=== PATIENT | male | born 1950 | race Caucasian/White ===

== ENCOUNTER → 2016-07-08 | Day surgery (SDC) | payer BC ==
[2016-07-01 10:06] VITALS: BMI 25.0
[~2016-07-08] VITALS: Ht 175.3 cm; Wt 78.2 kg
[~2016-07-08] MED LIST: ALBU18002 INH; ASCO500T87 PO; ASPI81TA28 PO; CHOL1000 PO; COCO1CAP PO; GLUCTAB32 PO; LECI1200 PO; LIDOCAINE HCL 2% 2 ML VIAL (20MG/ML) ONE; MIDAZOLAM HCL 1 MG/ML 2ML VIAL ONE; ONDANSETRON INJ 2 MG/ML 2 ML VIAL ONE; PROPOFOL IV EMULSION 10 MG/ML 20 ML VIAL IV ONE; SODIUM CHLORIDE 0.9% 500ML 500 ML IV ONE; TADA10TA PO; TURM1CAP4 PO; VITA400C3 PO; [UNRECOGNIZED DRUG - OTHER] PO
[2016-07-08 07:50] VITALS: Ht 175.3 cm; Wt 78.2 kg
--- NOTE | 2016-07-08 08:40 | Endo History and Physical ---
History & Physical Date of Service: July 08, 2016. Chief Complaint: SCREENING ABDOMINAL PAIN Referring Physician: KEV THAKKAR History of Present Illness 65 yo CM who presents for screening colonoscopy. Past Surgical History Hx Cardiac Surgery: No Hx Internal Defibrillator: No Hx Pacemaker: No Hx Abdominal Surgery: Yes (PURNIMA, RT INGUINAL HERNIA X 3, LEFT INGUINAL HERNIA REPAIR) Hx of Implantable Prosthesis: No Hx Post-Op Nausea and Vomiting: No Hx Cancer Surgery: Yes (RADICAL PROSTATECTOMY, FACIAL EXCISION) Hx Thoracic Surgery: No Hx Orthopedic: Yes (LEFT KNEE ARTHROSCOPY) Hx Urinary Tract Surgery: No Family History Polyp, IBD Social History Smoking Status: Former Smoker Hx Substance Use: No Hx Alcohol Use: Yes (2-3 BEERS DAILY) Allergies Coded Allergies: Apple (Verified Allergy, Severe, THROAT SWELLS, 07/08/16) Art (Verified Allergy, Severe, THROAT SWELLS, 07/08/16) NO KNOWN DRUG ALLERGIES (Verified Allergy, Unknown, ., 07/08/16) Latex1 -Allergic Contact Dermititis (Verified Adverse Reaction, Mild, LOCAL SKIN IRRITATION, 07/08/16) Current Medications Reported Home Medications Medications Dose Route/Sig Max Daily Dose Days Date Category Aspirin Ec (Aspirin) 81 Mg Tab 162 Mg PO DAILY 07/08/16 Reported [Mobility Essentials] 1 Cap PO BID 07/01/16 Reported Glucosamine Chondroitin & (Jlpqntkgqbs-Qeclqizmpef-Ok Cho) 1 Tab Tab 1 Tab PO BID 07/01/16 Reported Vitamin C Tr/Ling Hips (Ascorbic Acid) 500 Mg Tab 1 Tab PO DAILY AT LUNCH 07/01/16 Reported Lecithin 1,200 Mg Cap 1 Cap PO DAILY AT LUNCH 07/01/16 Reported Coconut Oil Organic (Coconut Oil) 1,000 Mg Cap 1 Cap PO BID 07/01/16 Reported Turmeric (Turmeric (Curcuma Longa)) 500 Mg Cap 1 Cap PO DAILY AT LUNCH 07/01/16 Reported Vitamin D3 (Cholecalciferol) 1,000 Unit Tab 1 Tab PO QAM 90 07/01/16 Reported Vitamin E 400 Iu (Vitamin E) 400 Unit Cap 400 Inter.unit PO BID 07/01/16 Reported Cialis (Tadalafil) 10 Mg Tab 10 Mg PO UD 07/01/16 Reported Proair Respiclick (Albuterol Sulfate) 108 Mcg/Act Aer 2 Puff INH Q4H PRN 07/01/16 Reported Vital Signs Weight (Kilograms): 78.18 Height (Feet): 5 Height (Inches): 9 Date Time Temp Pulse Resp B/P Pulse Ox O2 Delivery O2 Flow Rate FiO2 07/08/16 08:08 36.8 79 20 138/76 96 Room Air Physical Exam General Appearance: WD/WN, no apparent distress Respiratory/Chest: Auscultation: breath sounds normal Cardiovascular: Heart Auscultation: RRR Abdomen: Bowel Sounds: normal Inspection & Palpation: soft, non-distended, no tenderness, guarding & rebound Assessment and Plan Assessment: 65 yo CM who presents for screening colonoscopy. Plan: Proceed with colonoscopy.
--- NOTE | 2016-07-08 09:09 | Discharge Instructions ---
Endoscopy Patient Instructions Date / Procedure(s) Performed July 08, 2016. Colonoscopy Allergy Information Coded Allergies: Apple (Verified Allergy, Severe, THROAT SWELLS, 07/08/16) Art (Verified Allergy, Severe, THROAT SWELLS, 07/08/16) NO KNOWN DRUG ALLERGIES (Verified Allergy, Unknown, ., 07/08/16) Latex1 -Allergic Contact Dermititis (Verified Adverse Reaction, Mild, LOCAL SKIN IRRITATION, 07/08/16) Discharge Date / Findings July 08, 2016. Colon polyp Diverticulosis Internal hemorrhoids Medication Instructions Stopped Medication(s): VITAMINS AND ASA OK to resume all medications today as prescribed Reported Home Medications Medications Dose Route/Sig Max Daily Dose Days Date Category Aspirin Ec (Aspirin) 81 Mg Tab 162 Mg PO DAILY 07/08/16 Reported [Mobility Essentials] 1 Cap PO BID 07/01/16 Reported Glucosamine Chondroitin & (Ehtpeournum-Zipobfmvzrp-Qh Cho) 1 Tab Tab 1 Tab PO BID 07/01/16 Reported Vitamin C Tr/Ling Hips (Ascorbic Acid) 500 Mg Tab 1 Tab PO DAILY AT LUNCH 07/01/16 Reported Lecithin 1,200 Mg Cap 1 Cap PO DAILY AT LUNCH 07/01/16 Reported Coconut Oil Organic (Coconut Oil) 1,000 Mg Cap 1 Cap PO BID 07/01/16 Reported Turmeric (Turmeric (Curcuma Longa)) 500 Mg Cap 1 Cap PO DAILY AT LUNCH 07/01/16 Reported Vitamin D3 (Cholecalciferol) 1,000 Unit Tab 1 Tab PO QAM 90 07/01/16 Reported Vitamin E 400 Iu (Vitamin E) 400 Unit Cap 400 Inter.unit PO BID 07/01/16 Reported Cialis (Tadalafil) 10 Mg Tab 10 Mg PO UD 07/01/16 Reported Proair Respiclick (Albuterol Sulfate) 108 Mcg/Act Aer 2 Puff INH Q4H PRN 07/01/16 Reported Provider Instructions Activity Restrictions - No exercising or heavy lifting for 24 hours. - Do not drink alcohol the day of the procedure. - Do not drive a car or operate machinery until the day after the procedure. - Do not make any important decisions or sign important papers in 24 hours after the procedure. Following Day: - Return to full activity which may include returning to work/school. Diet Start your diet with liquids and light foods (jello, soup, juice, toast). Then eat your usual diet if not nauseated. Treatment For Common After Affects For mild abdominal pain, bloating, or excessive gas: - Rest - Eat lightly - Lie on right side Follow-Up Information Follow-up with KEV THAKKAR as scheduled Anesthesia Information What You Should Know You have had a procedure that required some medicine to reduce anxiety and discomfort. This treatment is called moderate sedation. After receiving the treatment, you may be sleepy, but you will be able to breathe on your own. The effects of the treatment may last for several hours. Follow these instructions along with Activity/Diet recommendations noted above: * Do NOT do anything where dizziness or clumsiness would be dangerous. * Rest quietly at home today, then you can be up and about tomorrow. * Have a responsible person stay with you the rest of today. * You may have had an I.V. today. If so, you may take the dressing off later today. Recommendations Call your doctor if: * Trouble breathing * Continuous vomiting for more than 24 hours * Temperature above 101 degrees * Severe abdominal pain or bloating * Pain not relieved by pain medicine ordered * There is increased drainage or redness from any incision * A large amount of rectal bleeding greater than 2-3 tablespoons. (If you had a polyp/s removed or have hemorrhoids, a small amount of blood - from the rectum is to be expected.) * You have any unanswered questions or concerns. IN THE EVENT OF A SERIOUS EMERGENCY, GO TO THE NEAREST EMERGENCY ROOM Your discharge instructions were prepared by provider Berto Barragan. Patient Instructions Signature Page Elías Burnette Patient (or Guardian) Signature/Date: I have read and understand the instructions given to me by my caregivers. Caregiver/RN/Doctor Signature/Date: The above-named patient and/or guardian has received patient instructions on this date. + Original Patient Signature Page (only) stays with chart. Please make copy for patient.
--- NOTE | 2016-07-08 09:14 | GI REPORT ---
Procedure Date: 07/08/2016 8:41 AM Procedure: Colonoscopy Indications: Screening for colorectal malignant neoplasm Medicines: Monitored Anesthesia Care Complications: No immediate complications. Estimated Blood Loss: Estimated blood loss: none. Procedure: Pre-Anesthesia Assessment: - Prior to the procedure, a History and Physical was performed, and patient medications and allergies were reviewed. The patient's tolerance of previous anesthesia was also reviewed. The risks and benefits of the procedure and the sedation options and risks were discussed with the patient. All questions were answered, and informed consent was obtained. Prior Anticoagulants: The patient has taken aspirin, last dose was 7 days prior to procedure. ASA Grade Assessment: II - A patient with mild systemic disease. After reviewing the risks and benefits, the patient was deemed in satisfactory condition to undergo the procedure. After I obtained informed consent, the scope was passed under direct vision. Throughout the procedure, the patient's blood pressure, pulse, and oxygen saturations were monitored continuously. The scope was introduced through the anus and advanced to the terminal ileum. The colonoscopy was performed without difficulty. The patient tolerated the procedure well. The quality of the bowel preparation was good. The terminal ileum, ileocecal valve, appendiceal orifice, and rectum were photographed. Findings: A 5 mm polyp was found in the descending colon. The polyp was sessile. The polyp was removed with a hot snare. Resection and retrieval were complete. Multiple small-mouthed diverticula were found in the sigmoid colon. Non-bleeding internal hemorrhoids were found during retroflexion. The hemorrhoids were small. Impression: - One 5 mm polyp in the descending colon, removed with a hot snare. Resected and retrieved. - Diverticulosis in the sigmoid colon. - Non-bleeding internal hemorrhoids. Recommendation: - Resume previous diet. - Continue present medications. - Repeat colonoscopy for surveillance based on pathology results. - Return to primary care physician as previously scheduled. Berto Barragan DO 07/08/2016 9:14:10 AM This report has been signed electronically. Note Initiated On: 07/08/2016 8:41 AM I attest to the content of the Intraoperative Record and orders documented therein, exceptions below
--- NOTE | 2016-07-08 09:31 | Anesthesiology Progress Note ---
Anesthesia Post Op Note Date & Time July 08, 2016 at 09:31 Vital Signs Pain Intensity: 0 Vital Signs Past 12 Hours Date Time Temp Pulse Resp B/P Pulse Ox O2 Delivery O2 Flow Rate FiO2 07/08/16 09:19 60 20 108/75 95 Room Air 07/08/16 09:04 65 20 107/71 95 Room Air 07/08/16 08:08 36.8 79 20 138/76 96 Room Air Notes Mental Status: alert / awake / arousable, participated in evaluation Pt Amnestic to Procedure: Yes Nausea / Vomiting: adequately controlled Pain: adequately controlled Airway Patency, RR, SpO2: stable & adequate BP & HR: stable & adequate Hydration State: stable & adequate Anesthetic Complications: no major complications apparent
[2016-07-08 09:34] VITALS: BP 104/81; PULSE 64; O2SAT 94
== END | disposition home or self-care (01) ==
LOC: C.GI 07:36
PROVIDERS: ATTEND Internal Medicine
DX: Z12.11 Encounter for screening for malignant neoplasm of colon (principal); D12.4 Benign neoplasm of descending colon; K57.30 Diverticulosis of large intestine without perforation or abscess without bleeding; K64.8 Other hemorrhoids; Z87.891 Personal history of nicotine dependence; Z90.79 Acquired absence of other genital organ(s)

== ENCOUNTER → 2016-11-22 | Outpatient (CLI) | payer BC ==
[~2016-11-22] MED LIST changes: -LIDOCAINE HCL 2% 2 ML VIAL (20MG/ML) ONE; -MIDAZOLAM HCL 1 MG/ML 2ML VIAL ONE; -ONDANSETRON INJ 2 MG/ML 2 ML VIAL ONE; -PROPOFOL IV EMULSION 10 MG/ML 20 ML VIAL IV ONE; -SODIUM CHLORIDE 0.9% 500ML 500 ML IV ONE
[2016-11-22 12:48] LABS: ALT/SGPT 22 U/L (12-78); AST/SGOT 17 U/L (15-37); BLOOD UREA NITROGEN 12 mg/dl (7-18); BUN/CREATININE RATIO 16.2 (10-20); CARBON DIOXIDE 28 mmol/L (21-32); CHLORIDE 104 mmol/L (98-107); CHOLESTEROL 193 mg/dl (0-200); CREATININE 0.76 mg/dl (0.60-1.40); GLUCOSE 94 mg/dl (70-99); SODIUM 139 mmol/L (136-145)
[2016-11-22 12:51] LABS: ALB/GLOB RATIO 1.2 (0.9-2); ALKALINE PHOSPHATASE 53 U/L (45-117); CHOLESTEROL/HDL RATIO 3.1; HDL CHOLESTEROL 62 mg/dl; LDL CHOLESTEROL CALCULATED 121 mg/dl; PROSTATE SPECIFIC ANTIGEN < 0.010 ng/ml (0.000-4.000); TRIGLYCERIDES 52 mg/dl (0-150); VERY LOW DENSITY LIPOPROT CALC 10 mg/dl
== END | disposition home or self-care (01) ==
LOC: C.LABBFT 10:56
PROVIDERS: ATTEND Nurse Practitioner
DX: C61 Malignant neoplasm of prostate (principal); Z13.6 Encounter for screening for cardiovascular disorders; M25.50 Pain in unspecified joint

== ENCOUNTER 2022-09-21 12:09 | Inpatient (IN) ==
--- NOTE | 2022-09-21 12:20 | Emergency Department Note ---
Impression & Plan Acute hyponatremia, Fever, Thrombocytopenia, Disequilibrium, Headache ED Provider Note NAME: LIZA FLORES AGE: 72 SEX: M : 1950 ARRIVES VIA: Walk-In INFORMANT: Patient, ED PROVIDER(S): Aj Mckeon MD CHIEF COMPLAINT: Disequilibrium, headache, fever MEDICAL DECISION MAKING: Patient presents with the above symptoms and states that they have been ongoing about 4 days. IV was established blood work is obtained along with CT head CT angiography of the head and neck. Patient was treated with IV fluids IV Zofran and p.o. meclizine. Patient also did have an EKG and tickborne studies Patient reportedly became little shaky and did have his blood sugar checked which was in the 60s and 70s. The patient was given some juice and crackers. Blood work shows mild leukopenia with a normal H&H. Mild thrombocytopenia at 100. Patient does have hyponatremia 129. Patient could have tickborne illness. Patient's initial Anaplasma smear is negative with negative Lyme's. Ehrlichia pending. COVID-negative. Patient did have some mild improvement in his symptoms with the meclizine. Patient CT had CT angiography of the head and neck. Given the patient's positive Romberg and age along with his associated hyponatremia to where the patient would benefit from inpatient treatment at this time. I did speak with the on-call hospital service Dr. Salvador and the patient was admitted. Prior /Outside records reviewed: None Differential diagnosis: Benign positional vertigo, dehydration, hypovolemia, anemia, tumor, infection, hypoglycemia, electrolyte abnormalities. Diagnostics, as interpreted by me: ECG: A-fib, rate of 78, normal QRS, left axis deviation, PVC noted. ST depressions in the lateral leads Cardiac monitoring: An order was placed for continuous cardiac monitoring. The monitor shows a rate of 82 with irregularly irregular rhythm. Patient was placed on pulse oximetry Medical decision rules: None Imaging studies: See below I informally reviewed the patient's CT of the head which does not show obvious ICH HPI: Patient presents due to concern for disequilibrium headache and fever. The patient states that he has had his symptoms for proxy 4 days in duration. Patient is that he did have some night sweats but did not take his temperature at that time. The patient subsequently did have a temperature this morning that he thought was 101. The patient did take some Tylenol. Patient states that he does check himself for ticks but does not believe that has had any recent. Patient denies any falls or trauma. The patient does take Eliquis for history of A-fib as well as digoxin. The patient follows with Dr. Haas. The patient denies any recent changes in medications. The patient does not complain of any vertigo or spinning but does feel as though his balance is off. Patient denies any tinnitus hearing loss or ear pain. No chest pain or shortness of breath. The patient has had some upset stomach but denies any true nausea. No vomiting. Patient has had chronic issues with looser stools and possible diarrhea. PAST MEDICAL HISTORY: See Below PAST SURGICAL HISTORY: See Below SOCIAL HISTORY: See Below HOME MEDICATIONS: See Below ALLERGIES: See Below VITALS: See Below PHYSICAL EXAMINATION: GENERAL: NAD, non-toxic. Wearing glasses. EYE EXAM: Normal conjunctiva. PERRL, no anisocoria and EOM's grossly intact w/o pain. OROPHARYNX: Moist mucus membranes, grossly normal dentition. NECK: Supple, no nuchal rigidity, no adenopathy, non-tender. No signs of meningismus. FROM of the neck with good chin to chest and neck extension. No stridor. LUNGS: Clear to auscultation. Normal chest wall mechanics. HEART: Irregularly irregular, no MRG. ABDOMEN: Abdomen soft, non-tender, no masses, no rebound or guarding. BACK: No CVA TTP. SKIN: No rashes and no bruising. UPPER EXTREMITIES: Upper extremities are grossly normal. LOWER EXTREMITIES: Grossly normal, no edema. NEURO EXAM: A&O x3, cranial nerves II-XII grossly intact, normal speech, moves all 4 extremities. Good [id number]-[id number], no drift, positive Romberg. Past Med/Surg History Medical History Atrial fibrillation F/U DR. MAHMOOD, S History of anesthesia reaction "BECAME VERY VIOLENT AFTER LAUGHING GAS" History of seizure AN INFANT, HAD SEIZURES WITH HIGH FEVER AND MEASLES Osteoarthritis RT KNEE Prostate cancer HX Surgical History H/O arthroscopic knee surgery History of cholecystectomy History of prostate surgery RADICAL Hx of basal cell carcinoma excision Hx of colonoscopy Hx of left inguinal hernia repair Hx of tonsillectomy Status post right inguinal hernia repair X3 ON THE RIGHT Family History Grandmother Colorectal cancer Father Congestive heart failure Mother Cervical cancer Sister Ovarian cancer Denies family history of Prostate cancer Breast cancer Social History Smoking Status: Never smoker Age Started Using Tobacco: 19; Age Quit Using Tobacco: 32; packs per day: 1.5; Second Hand Exposure: Yes (HX); Do You Dip or Chew Tobacco: Yes (HX-QUIT OVER 20 YEARS AGO; ADVISED); Hx Alcohol Use: Yes Alcohol type: beer and hard liquor Alcohol Intake Frequency Comment: 1-2 drinks per day Hx Substance Use: No Preferred Language: Tuvaluan Communication Ability: Effective Visual Impairment: Limited Hearing Ability: Normal Change Over Required: No Beliefs That Will Affect Care: None marital status: Current Living Situation: Spouse current occupational status: retired Feels Safe at Home: Yes Childhood Exposure to Second-Hand Smoke: No Diet: regular caffeine: Yes during the past year weight has: remained stable Dental Care, Regularly: Yes Physical Activity Frequency: Daily Seatbelt Use: always Sunscreen Use: Yes Assistive Devices: Glasses Allergies Allergies Allergy/AdvReac Type Severity Reaction Status Date / Time apple Allergy Severe THROAT Verified 05/27/22 13:39 SWELLS lizarraga Allergy Severe THROAT Verified 05/27/22 13:39 SWELLS latex AdvReac Mild LOCAL SKIN Verified 05/27/22 13:39 IRRITATION amoxicillin [From Augmentin] AdvReac severe Verified 05/27/22 13:39 diarrhea clavulanic acid AdvReac severe Verified 05/27/22 13:39 [From Augmentin] diarrhea Home Meds Home Medications Medication Instructions Recorded Confirmed turmeric 400 mg capsule 400 mg PO BID 01/14/19 09/21/22 apixaban 5 mg tablet (Eliquis) 5 mg PO BID 05/27/22 09/21/22 ascorbic acid (vitamin C) 500 mg 500 mg PO DAILY 05/27/22 09/21/22 tablet (Vitamin C With Ling Hips) atenolol 25 mg tablet 25 mg PO BID 03/27/23 07/22/23 digoxin 125 mcg (0.125 mg) tablet 125 mcg PO QAM 05/27/22 09/21/22 Results & Data (ED) Vital Signs Vital Signs - 24 hr 09/21/22 12:12 09/21/22 12:55 09/21/22 12:56 Temperature 36.3 C L Temperature Source Temporal Artery Scan Pulse Rate 83 75 Pulse Rate [Right Finger] Pulse Rhythm [Right Finger] Respiratory Rate 20 Respiratory Effort / Characteristics Non-Labored Respiratory Depth Normal Respiratory Pattern Blood Pressure 104/67 Blood Pressure [Right Arm] Blood Pressure Mean 79 Blood Pressure Mean [Right Arm] Blood Pressure Position [Right Arm] Pulse Oximetry 97 Oxygen Delivery Method Room Air Room Air Sepsis Recent Fever Within 48 Hours No Sepsis New/Unexplained Change in Mental Status N/A Sepsis Action Taken by Nursing No Action Required 09/21/22 14:00 09/21/22 16:15 Temperature Temperature Source Pulse Rate Pulse Rate [Right Finger] 74 89 Pulse Rhythm [Right Finger] Regular Respiratory Rate 18 18 Respiratory Effort / Characteristics Non-Labored Non-Labored Spontaneous Respiratory Depth Normal Normal Respiratory Pattern Regular Regular Blood Pressure Blood Pressure [Right Arm] 106/80 127/85 Blood Pressure Mean Blood Pressure Mean [Right Arm] 88 99 Blood Pressure Position [Right Arm] Lying Pulse Oximetry 94 97 Oxygen Delivery Method Room Air Room Air Sepsis Recent Fever Within 48 Hours Sepsis New/Unexplained Change in Mental Status Sepsis Action Taken by Skilled Nursing Medications Current Medication List: was personally reviewed by me Laboratory Data Attestation: I reviewed the patient's lab results. 09/21/22 12:50 09/21/22 12:50 Lab Results 09/21/22 09/21/22 09/21/22 Range/Units 12:50 12:50 12:50 WBC 4.26 L (4.8-10.8) K/ul RBC 5.16 (4.70-6.10) M/uL Hgb 16.3 (14.0-18.0) g/dl Hct 45.9 (42.0-52.0) % MCV 89.0 (80.0-100.0) fL MCH 31.6 (25.0-34.0) pg MCHC 35.5 (32.0-36.0) g/dL RDW Std Deviation 40.6 (36.4-46.3) fL RDW Coeff of Bessy 12.4 (11.5-14.5) % Plt Count 100 L (130-400) K/uL MPV 11.8 (9.4-12.4) fL Immature Gran % (Auto) 0.2 % Neut % (Auto) 73.5 % Lymph % (Auto) 15.0 % [place] % (Auto) 10.8 % Eos % (Auto) 0.0 % Baso % (Auto) 0.5 % Neut # (Auto) 3.13 (1.40-6.50) K/uL Lymph # (Auto) 0.64 L (1.2-3.4) K/uL [place] # (Auto) 0.46 (0.11-0.59) K/uL Eos # (Auto) 0.00 (0-0.50) K/uL Baso # (Auto) 0.02 (0-0.2) K/uL Immature Gran # (Auto) 0.01 (0.01-0.20) K/uL Polychromasia 1+ Tear Drop Cells 1+ Echinocytes 1+ Acanthocytes (Spur) 2+ Sodium 129 L (136-145) mmol/L Potassium 4.2 (3.5-5.1) mmol/L Chloride 93 L (98-107) mmol/L Carbon Dioxide 29 (21-32) mmol/L Anion Gap 7 (3-11) BUN 14 (6-23) mg/dl Creatinine 0.95 (0.6-1.4) mg/dl Est Cr Clr Drug Dosing 70.0 ml/min Est GFR ( Amer) 93.6 ml/min Est GFR (Non-Af Amer) 80.8 ml/min BUN/Creatinine Ratio 14.7 (10-20) Glucose 95 (70-99(Fasting)) mg/dl POC Glucose (70-99) mg/dl Calcium 9.3 (8.6-10.3) mg/dl Total Bilirubin 1.5 H (0.2-1.0) mg/dl AST 49 H (13-39) U/L ALT 35 (7-52) U/L Alkaline Phosphatase 80 (34-104) U/L Troponin I High Sens 9.0 (0-20) pg/ml Total Protein 7.2 (6.0-8.3) gm/dl Albumin 4.2 (3.4-5.0) gm/dl Globulin 3.0 (2.5-4.0) gm/dl Albumin/Globulin Ratio 1.4 (0.9-2) Digoxin (0.8-2.0) ng/ml Anaplasma Smear See Comment Lyme Disease IgG Ab Negative (Negative) Lyme Disease IgM Ab Negative (Negative) SARS-CoV-2, RNA, NAAT (NEGATIVE) 09/21/22 09/21/22 09/21/22 Range/Units 12:50 15:31 15:32 WBC (4.8-10.8) K/ul RBC (4.70-6.10) M/uL Hgb (14.0-18.0) g/dl Hct (42.0-52.0) % MCV (80.0-100.0) fL MCH (25.0-34.0) pg MCHC (32.0-36.0) g/dL RDW Std Deviation (36.4-46.3) fL RDW Coeff of Bessy (11.5-14.5) % Plt Count (130-400) K/uL MPV (9.4-12.4) fL Immature Gran % (Auto) % Neut % (Auto) % Lymph % (Auto) % [place] % (Auto) % Eos % (Auto) % Baso % (Auto) % Neut # (Auto) (1.40-6.50) K/uL Lymph # (Auto) (1.2-3.4) K/uL [place] # (Auto) (0.11-0.59) K/uL Eos # (Auto) (0-0.50) K/uL Baso # (Auto) (0-0.2) K/uL Immature Gran # (Auto) (0.01-0.20) K/uL Polychromasia Tear Drop Cells Echinocytes Acanthocytes (Spur) Sodium (136-145) mmol/L Potassium (3.5-5.1) mmol/L Chloride (98-107) mmol/L Carbon Dioxide (21-32) mmol/L Anion Gap (3-11) BUN (6-23) mg/dl Creatinine (0.6-1.4) mg/dl Est Cr Clr Drug Dosing ml/min Est GFR ( Amer) ml/min Est GFR (Non-Af Amer) ml/min BUN/Creatinine Ratio (10-20) Glucose (70-99(Fasting)) mg/dl POC Glucose 62 L* 75 (70-99) mg/dl Calcium (8.6-10.3) mg/dl Total Bilirubin (0.2-1.0) mg/dl AST (13-39) U/L ALT (7-52) U/L Alkaline Phosphatase (34-104) U/L Troponin I High Sens (0-20) pg/ml Total Protein (6.0-8.3) gm/dl Albumin (3.4-5.0) gm/dl Globulin (2.5-4.0) gm/dl Albumin/Globulin Ratio (0.9-2) Digoxin 0.6 L (0.8-2.0) ng/ml Anaplasma Smear Lyme Disease IgG Ab (Negative) Lyme Disease IgM Ab (Negative) SARS-CoV-2, RNA, NAAT (NEGATIVE) 09/21/22 09/21/22 Range/Units 16:13 16:26 WBC (4.8-10.8) K/ul RBC (4.70-6.10) M/uL Hgb (14.0-18.0) g/dl Hct (42.0-52.0) % MCV (80.0-100.0) fL MCH (25.0-34.0) pg MCHC (32.0-36.0) g/dL RDW Std Deviation (36.4-46.3) fL RDW Coeff of Bessy (11.5-14.5) % Plt Count (130-400) K/uL MPV (9.4-12.4) fL Immature Gran % (Auto) % Neut % (Auto) % Lymph % (Auto) % [place] % (Auto) % Eos % (Auto) % Baso % (Auto) % Neut # (Auto) (1.40-6.50) K/uL Lymph # (Auto) (1.2-3.4) K/uL [place] # (Auto) (0.11-0.59) K/uL Eos # (Auto) (0-0.50) K/uL Baso # (Auto) (0-0.2) K/uL Immature Gran # (Auto) (0.01-0.20) K/uL Polychromasia Tear Drop Cells Echinocytes Acanthocytes (Spur) Sodium (136-145) mmol/L Potassium (3.5-5.1) mmol/L Chloride (98-107) mmol/L Carbon Dioxide (21-32) mmol/L Anion Gap (3-11) BUN (6-23) mg/dl Creatinine (0.6-1.4) mg/dl Est Cr Clr Drug Dosing ml/min Est GFR ( Amer) ml/min Est GFR (Non-Af Amer) ml/min BUN/Creatinine Ratio (10-20) Glucose (70-99(Fasting)) mg/dl POC Glucose 106 H (70-99) mg/dl Calcium (8.6-10.3) mg/dl Total Bilirubin (0.2-1.0) mg/dl AST (13-39) U/L ALT (7-52) U/L Alkaline Phosphatase (34-104) U/L Troponin I High Sens (0-20) pg/ml Total Protein (6.0-8.3) gm/dl Albumin (3.4-5.0) gm/dl Globulin (2.5-4.0) gm/dl Albumin/Globulin Ratio (0.9-2) Digoxin (0.8-2.0) ng/ml Anaplasma Smear Lyme Disease IgG Ab (Negative) Lyme Disease IgM Ab (Negative) SARS-CoV-2, RNA, NAAT NEGATIVE (NEGATIVE) Administered Medications Sodium Chloride (Nss 1000ml) 1,000 mls @ 100 mls/hr IV .Q10H SERGE Stop: 10/21/22 18:36 Last Admin: 09/21/22 18:52 Dose: 100 mls/hr Documented By: MHN Discontinued Medications Sodium Chloride (Nss 1000ml) 1,000 mls @ 999 mls/hr IV .Q1H1M SERGE Stop: 09/21/22 13:45 Last Infusion: 09/21/22 14:20 Dose: 0 mls/hr Documented By: Admin: 09/21/22 13:00 Dose: 999 mls/hr Documented By: AP Ioversol (Ioversol 350 Mg 125ml Prefilled Syringe) 118 ml IV ONCE ONE Stop: 09/21/22 14:50 Last Admin: 09/21/22 14:50 Dose: 118 ml Documented By: SHENA Meclizine HCl (Meclizine Hcl 25 Mg Tab) 25 mg PO NOW STA Stop: 09/21/22 12:43 Last Admin: 09/21/22 13:00 Dose: 25 mg Documented By: AP Ondansetron HCl (Ondansetron Inj 2 Mg/Ml 2 Ml Vial) 4 mg IV NOW STA Stop: 09/21/22 12:43 Last Admin: 09/21/22 13:00 Dose: 4 mg Documented By: AP Imaging Data Radiologist's Impression: Head CT 09/21/22 12:42 CT OF THE HEAD WITHOUT CONTRAST CLINICAL HISTORY: +romberg, disequilibrium COMPARISON STUDY: Head CT August 11, 2019. TECHNIQUE: Helical axial images of the head were obtained without IV contrast. Automated exposure control was utilized for the study. A dose lowering technique was utilized adhering to the principles of ALARA. FINDINGS: No acute intracranial hemorrhage, midline shift or mass effect is present. The ventricular system is unremarkable. The basal cisterns are patent. No extra-axial collections are present. There are no findings to suggest acute dural sinus thrombosis or acute territorial infarct. No significant calvarial abnormalities are present. Visualized portions of the sinuses and mastoid air cells are clear. IMPRESSION: No acute intracranial findings. ACT 112: Negative or not required by law. Electronically signed by: Valente Blanco M.D. 09/21/2022 3:17 PM Head CTA 09/21/22 12:42 CTA ANGIOGRAPHY OF THE HEAD CLINICAL HISTORY: +bertrandberg, disequilibrium COMPARISON STUDY: Head CT August 11, 2019. TECHNIQUE: Helical axial images of the head were obtained following uneventful intravenous administration of 118 cc of Optiray. Sagittal and coronal reconstructions were viewed as well as maximal intensity projections on an independent 3-D workstation. Automated exposure control was utilized for the study. A dose lowering technique was utilized adhering to the principles of ALARA. FINDINGS: No acute intracranial hemorrhage is identified on the head CT which will be reported separately. Ventricular system is normal. Basal cisterns are patent. There are no extra-axial collections. The bilateral M1, M2, A1 and A2 segments are patent. Posterior circulation is intact. There is no central vessel occlusion. There is no intracranial aneurysm. IMPRESSION: Unremarkable CTA of the head. ACT 112: Negative or not required by law. Electronically signed by: Valente Blanco M.D. 09/21/2022 3:35 PM Neck CTA 09/21/22 12:42 CT ANGIOGRAPHY OF THE NECK WITH CONTRAST CLINICAL HISTORY: +romberg, disequilibrium COMPARISON STUDY: No previous studies for comparison. Technique: CT angiography of the carotid and vertebral arteries was obtained using Optiray and 3D reconstruction on an independent workstation. NASCET criteria was utilized. Automated exposure control was utilized for the study. A dose lowering technique was utilized adhering to the principles of ALARA. CT DOSE: 976.42 mGy.cm Findings: Visualized portions of the lung apices are unremarkable. There is no cervical lymphadenopathy. There is no cervical spine fracture. The bilateral common carotid, cervical internal carotid and vertebral arteries are patent. There is no stenosis or dissection within these vessels. There is no aneurysm within the neck. There is mild plaque within the proximal left internal carotid artery without stenosis. CTA of the head will be reported separately. IMPRESSION: No stenosis or dissection within the bilateral common carotid, cervical internal carotid or vertebral arteries. ACT 112: Negative or not required by law. Electronically signed by: Valente Blanco M.D. 09/21/2022 3:27 PM Discharge Plan Visit Data Chief Complaint: Fever Stated Complaint: FEVER, OFF BALANCE ED Provider: Aj Mckeon Discharge Problem: Acute hyponatremia, Fever, Thrombocytopenia, Disequilibrium, Headache Patient Disposition: Admitted As Inpatient Discharge Instructions Interventions: ED Discharge Assessment Last Done: 09/21/22 17:53
[2022-09-21] MEDS ORDERED: MECLIZINE HCL 25 MG TAB PO STA (12:42)
[2022-09-21] MEDS ORDERED: ONDANSETRON INJ 2 MG/ML 2 ML VIAL IV STA (12:42)
[2022-09-21] MEDS ORDERED: SODIUM CHLORIDE 0.9% 1000ML 1,000 ML IV SCH (12:45)
[2022-09-21 13:50] LABS: Albumin Globulin Ratio 1.4 (0.9-2); Albumin Level 4.2 gm/dl (3.4-5.0); BUN Creatinine Ratio 14.7 (10-20); Bilirubin,Total 1.5 mg/dl (0.2-1.0); Calcium 9.3 mg/dl (8.6-10.3); Est GFR (African American) 93.6 ml/min; Est GFR (Non-African American) 80.8 ml/min; Potassium 4.2 mmol/L (3.5-5.1); Total Protein 7.2 gm/dl (6.0-8.3)
[2022-09-21 14:01] LABS: Acanthocytes 2+; Echinocytes 1+; Polychromasia 1+; Tear Drop Cells 1+
[2022-09-21 14:03] LABS: Basophils # (auto) 0.02 K/uL (0-0.2); Basophils % (auto) 0.5 %; Hematocrit (blood only) 45.9 % (42.0-52.0); Hemoglobin 16.3 g/dl (14.0-18.0); Immature Granulocytes # (auto) 0.01 K/uL (0.01-0.20); Immature Granulocytes % (auto) 0.2 %; Lymphocytes # (auto) 0.64 K/uL (1.2-3.4); Mean Corpuscular Hemoglobin 31.6 pg (25.0-34.0); Mean Corpuscular Hgb Conc 35.5 g/dL (32.0-36.0); Mean Platelet Volume 11.8 fL (9.4-12.4); Monocytes # (auto) 0.46 K/uL (0.11-0.59); Monocytes % (auto) 10.8 %; Neutrophils # (auto) 3.13 K/uL (1.40-6.50); Neutrophils % (auto) 73.5 %; Platelet Count 100 K/uL (130-400); RDW Coefficient of Variation 12.4 % (11.5-14.5); RDW Standard Deviation 40.6 fL (36.4-46.3); Red Blood Count 5.16 M/uL (4.70-6.10); White Blood Count 4.26 K/ul (4.8-10.8)
[2022-09-21 14:14] LABS: Lyme Ab IgG w/WB Rflx Negative (Negative)
[2022-09-21 14:15] LABS: Lyme Ab IgM w/WB Rflx Negative (Negative)
[2022-09-21] MEDS ORDERED: IOVERSOL 350 MG 125mL Prefilled Syringe IV ONE (14:49)
--- NOTE | 2022-09-21 15:18 | CT Scan Report ---
CT OF THE HEAD WITHOUT CONTRAST CLINICAL HISTORY: +romberg, disequilibrium COMPARISON STUDY: Head CT August 11, 2019. TECHNIQUE: Helical axial images of the head were obtained without IV contrast. Automated exposure con trol was utilized for the study. A dose lowering technique was utilized adhering to the principles o f ALARA. FINDINGS: No acute intracranial hemorrhage, midline shift or mass effect is present. The ventricular system is unremarkable. The basal cisterns are patent. No extra-axial collections are present. There are no findings to suggest acute dural sinus thrombosis or acute territorial infarct. No significant calvarial abnormalities are present. Visualized portions of the sinuses and mastoid air cells are saran ar. IMPRESSION: No acute intracranial findings. ACT 112: Negative or not required by law. Electronically signed by: Valente Blanco M.D. 09/21/2022 3:17 PM
--- NOTE | 2022-09-21 15:30 | CT Scan Report ---
CT ANGIOGRAPHY OF THE NECK WITH CONTRAST CLINICAL HISTORY: +romberg, disequilibrium COMPARISON STUDY: No previous studies for comparison. Technique: CT angiography of the carotid and vertebral arteries was obtained using Optiray and 3D rec onstruction on an independent workstation. NASCET criteria was utilized. Automated exposure control was utilized for the study. A dose lowering technique was utilized adhering to the principles of ALA RA. CT DOSE: 976.42 mGy.cm Findings: Visualized portions of the lung apices are unremarkable. There is no cervical lymphadenopat hy. There is no cervical spine fracture. The bilateral common carotid, cervical internal carotid and vertebral arteries are patent. There is no stenosis or dissection within these vessels. There is no a neurysm within the neck. There is mild plaque within the proximal left internal carotid artery withou t stenosis. CTA of the head will be reported separately. IMPRESSION: No stenosis or dissection within the bilateral common carotid, cervical internal carotid or vertebral arteries. ACT 112: Negative or not required by law. Electronically signed by: Valente Blanco M.D. 09/21/2022 3:27 PM
--- NOTE | 2022-09-21 15:37 | CT Scan Report ---
CTA ANGIOGRAPHY OF THE HEAD CLINICAL HISTORY: +romberg, disequilibrium COMPARISON STUDY: Head CT August 11, 2019. TECHNIQUE: Helical axial images of the head were obtained following uneventful intravenous administr ation of 118 cc of Optiray. Sagittal and coronal reconstructions were viewed as well as maximal inten sity projections on an independent 3-D workstation. Automated exposure control was utilized for the study. A dose lowering technique was utilized adhering to the principles of ALARA. FINDINGS: No acute intracranial hemorrhage is identified on the head CT which will be reported separa tely. Ventricular system is normal. Basal cisterns are patent. There are no extra-axial collections. The bilateral M1, M2, A1 and A2 segments are patent. Posterior circulation is intact. There is no allison tral vessel occlusion. There is no intracranial aneurysm. IMPRESSION: Unremarkable CTA of the head. ACT 112: Negative or not required by law. Electronically signed by: Valente Blanco M.D. 09/21/2022 3:35 PM
--- NOTE | 2022-09-21 17:13 | History & Physical Report ---
Date of Service September 21, 2022 Assessment & Plan (1) Fever: (2) Hyponatremia: (3) Thrombocytopenia: (4) History of prostate cancer: Plan: Patient is a 72-year-old male with past medical history of A-fib on Eliquis, hyperlipidemia, radical prostatectomy presents to the ED with fever, UTI symptoms and dizziness. Tmax of 101 F at home No leukocytosis. Thrombocytopenia with platelet count of 100,000 Sodium of [address] head, CTA head and neck negative for acute finding. Obtain urinalysis, urine culture and blood culture to rule out UTI/sepsis Start on empiric ceftriaxone and doxycycline. Lyme IgG G and IgM negative. Anaplasma and Babesia serology sent Obtain urine osmolarity, urine electrolytes. Hyponatremia likely due to hypovolemia. Started on normal saline. Obtain orthostatic vitals. PT OT eval. Obtain peripheral smear Other conditions; Atrial fibrillation; EKG personally reviewed; A-fib with controlled heart rate. Continue on Eliquis, digoxin and atenolol. Monitor on telemetry History of prostate cancer status post prostatectomy Hyperlipidemianot on statin. Time spent evaluating patient, direct bedside care, chart review, placing orders, interpretation of diagnostic studies, discussion with consultants, patient, and family members, as well as other required patient management activities is 75 minutes. Please note the above document was generated using voice recognition software. It may contain grammatical, syntax or spelling errors. Any formal questions or concerns about the content, text or information contained within the body of this dictation should be directly addressed to the provider for clarification History of Present Illness Chief Complaint: Fever for 4 days Dizziness for 4 days Primary Care Provider: Xiomara Valdez MD History obtained from chart review and interview with the patient. Past medical history history of persistent atrial fibrillation, mitral valve regurgitation, hyperlipidemia, prostate cancer status post prostatectomy Patient presents to the ED with complaints of fever for last 4 days. Associated with chills. Tmax measured at home of 101 F He also reports dizziness when standing up for similar duration. He also reports headache. Denies any focal neurological deficit otherwise. He reports urinary symptoms with increased urgency and pain while micturating for same duration. He reports history of radical prostatectomy and reports wiping his penis with tissue. Reports being out in the [place]; denies any tick bite. No complaint of cough, chest pain. Reports abdominal pain in left lower quadrant which has been going on for several weeks. Reports diarrhea; 4-5 times a day since his cholecystectomy several years back. On presentation to the ED, patient is hemodynamically stable. Afebrile. Lab work was remarkable for thrombocytopenia with platelets of 100,000. He was also found to have hyponatremia with sodium of 129. Lyme IgG and IgM negative. He underwent CT head, CTA head and neck which did not show any acute abnormality. EKG shows atrial fibrillation; no ST or T wave changes. Medical history; as above Surgical history; history of prostatectomy, cholecystectomy Family history; father with heart issues Social history; former smoker; quit 20 years ago. Drinks 1-2 beers per day for several years. Stopped taking since last 4 days. Allergies Allergy/AdvReac Type Severity Reaction Status Date / Time apple Allergy Severe THROAT Verified 05/27/22 13:39 SWELLS lizarraga Allergy Severe THROAT Verified 05/27/22 13:39 SWELLS latex AdvReac Mild LOCAL SKIN Verified 05/27/22 13:39 IRRITATION amoxicillin [From Augmentin] AdvReac severe Verified 05/27/22 13:39 diarrhea clavulanic acid AdvReac severe Verified 05/27/22 13:39 [From Augmentin] diarrhea Home Medications Medication Instructions Recorded Confirmed Type turmeric 400 mg capsule 400 mg PO BID 01/14/19 09/21/22 History apixaban 5 mg tablet (Eliquis) 5 mg PO BID 05/27/22 09/21/22 History ascorbic acid (vitamin C) 500 mg 500 mg PO DAILY 05/27/22 09/21/22 History tablet (Vitamin C With Ling Hips) atenolol 25 mg tablet 25 mg PO BID 05/27/22 09/21/22 History digoxin 125 mcg (0.125 mg) tablet 125 mcg PO QAM 05/27/22 09/21/22 History Past Med/Surg History Medical History Atrial fibrillation F/U [facility] History of anesthesia reaction "BECAME VERY VIOLENT AFTER LAUGHING GAS" History of seizure AN , HAD SEIZURES WITH HIGH FEVER AND MEASLES Osteoarthritis RT KNEE Prostate cancer HX Surgical History H/O arthroscopic knee surgery History of cholecystectomy History of prostate surgery RADICAL Hx of basal cell carcinoma excision Hx of colonoscopy Hx of left inguinal hernia repair Hx of tonsillectomy Status post right inguinal hernia repair X3 ON THE RIGHT Family History Grandmother Colorectal cancer Father Congestive heart failure Mother Cervical cancer Sister Ovarian cancer Denies family history of Prostate cancer Breast cancer Social History Smoking Status: Never smoker Age Started Using Tobacco: 19; Age Quit Using Tobacco: 32; packs per day: 1.5; Second Hand Exposure: Yes (HX); Do You Dip or Chew Tobacco: Yes (HX-QUIT OVER 20 YEARS AGO; ADVISED); Hx Alcohol Use: Yes Alcohol type: beer and hard liquor Alcohol Intake Frequency Comment: 1-2 drinks per day Hx Substance Use: No Preferred Language: Irish Communication Ability: Effective Visual Impairment: Limited Hearing Ability: Normal Systems Eng Required: No Beliefs That Will Affect Care: None marital status: Current Living Situation: Spouse current occupational status: retired Feels Safe at Home: Yes Childhood Exposure to Second-Hand Smoke: No Diet: regular caffeine: Yes during the past year weight has: remained stable Dental Care, Regularly: Yes Physical Activity Frequency: Daily Seatbelt Use: always Sunscreen Use: Yes Assistive Devices: Glasses Review of Systems Review of Systems: All systems reviewed & are unremarkable except as noted in Subjective Physical Exam Physical Exam: Constitutional: Appears tired. Not oriented x3 Respiratory: Bilateral vesicular l breath sound Cardiovascular: Irregular, no murmur, no edema Vessels: no JVD or carotid bruit Chest: normal inspection of chest Abdomen: normal bowel sounds, soft, nontender, no hepatosplenomegaly Musculoskeletal: no cyanosis or clubbing, extremities motor strength 5/5 Skin: no rashes, warm and dry normal turgor Neurologic: Urine output 2-12 intact Strength 5/5 throughout Sensation intact throughout Finger-nose test negative Psychiatric: A+Ox3, euthymic affect Results & Data Results & Data Vital Signs (Past 12 Hours) Vital Signs Temp Pulse Pulse Resp BP BP Pulse Ox 09/21/22 16:15 89 18 127/85 97 09/21/22 14:00 74 18 106/80 94 09/21/22 12:56 75 09/21/22 12:55 09/21/22 12:12 36.3 C L 83 20 104/67 97 O2 Del Method 09/21/22 16:15 Room Air 09/21/22 14:00 Room Air 09/21/22 12:56 09/21/22 12:55 Room Air 09/21/22 12:12 Room Air Laboratory Results Laboratory Results WBC 4.26 K/ul (4.8-10.8) L 09/21/22 12:50 RBC 5.16 M/uL (4.70-6.10) 09/21/22 12:50 Hgb 16.3 g/dl (14.0-18.0) 09/21/22 12:50 Hct 45.9 % (42.0-52.0) 09/21/22 12:50 MCV 89.0 fL (80.0-100.0) 09/21/22 12:50 MCH 31.6 pg (25.0-34.0) 09/21/22 12:50 MCHC 35.5 g/dL (32.0-36.0) 09/21/22 12:50 RDW Std Deviation 40.6 fL (36.4-46.3) 09/21/22 12:50 RDW Coeff of Bessy 12.4 % (11.5-14.5) 09/21/22 12:50 Plt Count 100 K/uL (130-400) L 09/21/22 12:50 MPV 11.8 fL (9.4-12.4) 09/21/22 12:50 Immature Gran % (Auto) 0.2 % 09/21/22 12:50 Neut % (Auto) 73.5 % 09/21/22 12:50 Lymph % (Auto) 15.0 % 09/21/22 12:50 [place] % (Auto) 10.8 % 09/21/22 12:50 Eos % (Auto) 0.0 % 09/21/22 12:50 Baso % (Auto) 0.5 % 09/21/22 12:50 Neut # (Auto) 3.13 K/uL (1.40-6.50) 09/21/22 12:50 Lymph # (Auto) 0.64 K/uL (1.2-3.4) L 09/21/22 12:50 [place] # (Auto) 0.46 K/uL (0.11-0.59) 09/21/22 12:50 Eos # (Auto) 0.00 K/uL (0-0.50) 09/21/22 12:50 Baso # (Auto) 0.02 K/uL (0-0.2) 09/21/22 12:50 Immature Gran # (Auto) 0.01 K/uL (0.01-0.20) 09/21/22 12:50 Polychromasia 1+ 09/21/22 12:50 Tear Drop Cells 1+ 09/21/22 12:50 Echinocytes 1+ 09/21/22 12:50 Acanthocytes (Spur) 2+ 09/21/22 12:50 Sodium 129 mmol/L (136-145) L 09/21/22 12:50 Potassium 4.2 mmol/L (3.5-5.1) 09/21/22 12:50 Chloride 93 mmol/L (98-107) L 09/21/22 12:50 Carbon Dioxide 29 mmol/L (21-32) 09/21/22 12:50 Anion Gap 7 (3-11) 09/21/22 12:50 BUN 14 mg/dl (6-23) 09/21/22 12:50 Creatinine 0.95 mg/dl (0.6-1.4) 09/21/22 12:50 Est Cr Clr Drug Dosing 70.0 ml/min 09/21/22 12:50 Est GFR ( Amer) 93.6 ml/min 09/21/22 12:50 Est GFR (Non-Af Amer) 80.8 ml/min 09/21/22 12:50 BUN/Creatinine Ratio 14.7 (10-20) 09/21/22 12:50 Glucose 95 mg/dl (70-99(Fasting)) 09/21/22 12:50 POC Glucose 106 mg/dl (70-99) H 09/21/22 16:13 Calcium 9.3 mg/dl (8.6-10.3) 09/21/22 12:50 Total Bilirubin 1.5 mg/dl (0.2-1.0) H 09/21/22 12:50 AST 49 U/L (13-39) H 09/21/22 12:50 ALT 35 U/L (7-52) 09/21/22 12:50 Alkaline Phosphatase 80 U/L (34-104) 09/21/22 12:50 Troponin I High Sens 9.0 pg/ml (0-20) 09/21/22 12:50 Total Protein 7.2 gm/dl (6.0-8.3) 09/21/22 12:50 Albumin 4.2 gm/dl (3.4-5.0) 09/21/22 12:50 Globulin 3.0 gm/dl (2.5-4.0) 09/21/22 12:50 Albumin/Globulin Ratio 1.4 (0.9-2) 09/21/22 12:50 Digoxin 0.6 ng/ml (0.8-2.0) L 09/21/22 12:50 Anaplasma Smear See Comment 09/21/22 12:50 Lyme Disease IgG Ab Negative (Negative) 09/21/22 12:50 Lyme Disease IgM Ab Negative (Negative) 09/21/22 12:50 SARS-CoV-2, RNA, NAAT NEGATIVE (NEGATIVE) 09/21/22 16:[address] 09/21/22 12:42 CT OF THE HEAD WITHOUT CONTRAST CLINICAL HISTORY: +vicki pringle COMPARISON STUDY: Head CT August 11, 2019. TECHNIQUE: Helical axial images of the head were obtained without IV contrast. Automated exposure control was utilized for the study. A dose lowering technique was utilized adhering to the principles of ALARA. FINDINGS: No acute intracranial hemorrhage, midline shift or mass effect is present. The ventricular system is unremarkable. The basal cisterns are patent. No extra-axial collections are present. There are no findings to suggest acute dural sinus thrombosis or acute territorial infarct. No significant calvarial abnormalities are present. Visualized portions of the sinuses and mastoid air cells are clear. IMPRESSION: No acute intracranial findings. ACT 112: Negative or not required by law. Electronically signed by: Valente Blanco M.D. 09/21/2022 3:17 PM Head CTA 09/21/22 12:42 CTA ANGIOGRAPHY OF THE HEAD CLINICAL HISTORY: +vicki pringle COMPARISON STUDY: Head CT August 11, 2019. TECHNIQUE: Helical axial images of the head were obtained following uneventful intravenous administration of 118 cc of Optiray. Sagittal and coronal recons tructions were viewed as well as maximal intensity projections on an independent 3-D workstation. Automated exposure control was utilized for the study. A dose lowering technique was utilized adhering to the principles of ALARA. FINDINGS: No acute intracranial hemorrhage is identified on the head CT which will be reported separately. Ventricular system is normal. Basal cisterns are patent. There are no extra-axial collections. The bilateral M1, M2, A1 and A2 segments are patent. Posterior circulation is intact. There is no central vessel occlusion. There is no intracranial aneurysm. IMPRESSION: Unremarkable CTA of the head. ACT 112: Negative or not required by law. Electronically signed by: Valente Blanco M.D. 09/21/2022 3:35 PM Neck CTA 09/21/22 12:42 CT ANGIOGRAPHY OF THE NECK WITH CONTRAST CLINICAL HISTORY: +romberg, disequilibrium COMPARISON STUDY: No previous studies for comparison. Technique: CT angiography of the carotid and vertebral arteries was obtained using Optiray and 3D reconstruction on an independent workstation. NASCET criteria was utilized. Automated exposure control was utilized for the study. A dose lowering technique was utilized adhering to the principles of ALARA. CT DOSE: 976.42 mGy.cm Findings: Visualized portions of the lung apices are unremarkable. There is no cervical lymphadenopathy. There is no cervical spine fracture. The bilateral common carotid, cervical internal carotid and vertebral arteries are patent. There is no stenosis or dissection within these vessels. There is no aneurysm within the neck. There is mild plaque within the proximal left internal carotid artery without stenosis. CTA of the head will be reported separately. IMPRESSION: No stenosis or dissection within the bilateral common carotid, cervical internal carotid or vertebral arteries. ACT 112: Negative or not required by law. Electronically signed by: Valente Blanco M.D. 09/21/2022 3:27 PM
[2022-09-21] MEDS ORDERED: ACETAMINOPHEN 325 MG TAB PO PRN (18:37)
[2022-09-21] MEDS ORDERED: ALUMINUM/MAGNESIUM SUSP 30 ML UDC PO PRN (18:37)
[2022-09-21] MEDS: SODIUM CHLORIDE 0.9% 1000ML 1,000 ML IV SCH (18:52)
[2022-09-21 19:06] LABS: Appearance Urine Clear (Clear); Bilirubin Urine Negative (Negative); Blood Urine 2+ (Negative); Color Urine Yellow; Glucose Urine UA Negative (Negative); Ketones Urine Negative (Negative); Leukocyte Esterase Urine Negative (Negative); Nitrite Urine Negative (Negative); Protein Urine Negative (Negative); Specific Gravity Urine 1.005 (1.000-1.030); Urobilinogen Urine Negative (Negative)
[2022-09-21] MEDS: cefTRIAXone SODIUM 2,000 MG in DEXTROSE 5% 50 ML IV SCH (19:07)
[2022-09-21 19:20] LABS: Urine Chloride 27 mmol/L; Urine Potassium 10.9 mmol/L; Urine Sodium < 10 mmol/L
[2022-09-21 19:23] LABS: Bacteria Urine Automated Negative (Negative); Cast Urine Automated 0 /lpf (0-5); Epithelial Cell Urine Auto 0-5 /lpf (0-5)
[2022-09-21] MEDS: APIXABAN 5 MG TABLET PO SCH (20:28)
[2022-09-21] MEDS: ATENOLOL 25 MG TABLET PO SCH (20:28)
[2022-09-21] MEDS: DOXYCYCLINE HYCLATE 100 MG CAP PO SCH (20:28)
[2022-09-22] MEDS: SODIUM CHLORIDE 0.9% 1000ML 1,000 ML IV SCH (05:02)
[2022-09-22 07:10] LABS: Hematocrit (blood only) 41.1 % (42.0-52.0); Hemoglobin 14.8 g/dl (14.0-18.0); Mean Corpuscular Volume 86.2 fL (80.0-100.0); Mean Platelet Volume 12.3 fL (9.4-12.4); Platelet Count 82 K/uL (130-400); RDW Coefficient of Variation 12.6 % (11.5-14.5); RDW Standard Deviation 39.9 fL (36.4-46.3); Red Blood Count 4.77 M/uL (4.70-6.10); White Blood Count 2.72 K/ul (4.8-10.8)
[2022-09-22 07:27] LABS: Albumin Globulin Ratio 1.4 (0.9-2); Albumin Level 3.4 gm/dl (3.4-5.0); BUN Creatinine Ratio 14.5 (10-20); Bilirubin,Total 0.8 mg/dl (0.2-1.0); Calcium 7.9 mg/dl (8.6-10.3); Creatinine Clr Calc Pharmacy 87.5 ml/min; Est GFR (African American) 107.1 ml/min; Est GFR (Non-African American) 92.4 ml/min; Globulin 2.4 gm/dl (2.5-4.0); Potassium 3.7 mmol/L (3.5-5.1); Total Protein 5.8 gm/dl (6.0-8.3)
--- NOTE | 2022-09-22 07:54 | Electrocardiogram Report ---
Test Reason : Blood Pressure : / mmHG Vent. Rate : 078 BPM Atrial Rate : 000 BPM P-R Int : 000 ms QRS Dur : 092 ms QT Int : 388 ms P-R-T Axes : 000 -36 -16 degrees QTc Int : 442 ms Atrial fibrillation with premature ventricular or aberrantly conducted complexes Left axis deviation Low voltage QRS Abnormal ECG When compared with ECG of 25-MAR-2014 11:41, Atrial fibrillation has replaced Sinus rhythm HR has increased by 24 bpm Confirmed by Chinedu Clark ([id number]) on 09/22/2022 7:53:57 AM Referred By: REFERRED SELF Confirmed By:Chinedu Clark
--- NOTE | 2022-09-22 07:54 | Electrocardiogram Report ---
Test Reason : Blood Pressure : / mmHG Vent. Rate : 078 BPM Atrial Rate : 163 BPM P-R Int : 000 ms QRS Dur : 086 ms QT Int : 368 ms P-R-T Axes : 000 -69 -11 degrees QTc Int : 419 ms Atrial fibrillation Low voltage QRS Left anterior fascicular block Abnormal ECG When compared with ECG of 21-SEP-2022 12:52, No significant change was found Confirmed by Chinedu Clark ([id number]) on 09/22/2022 7:54:22 AM Referred By: REFERRED SELF Confirmed By:Chinedu Clark
[2022-09-22 07:57] LABS: Acanthocytes 1+; Basophils # (auto) 0.01 K/uL (0-0.2); Basophils % (auto) 0.4 %; Immature Granulocytes # (auto) 0.01 K/uL (0.01-0.20); Immature Granulocytes % (auto) 0.4 %; Lymphocytes # (auto) 0.73 K/uL (1.2-3.4); Lymphocytes % (auto) 26.8 %; Monocytes # (auto) 0.44 K/uL (0.11-0.59); Monocytes % (auto) 16.2 %; Neutrophils # (auto) 1.53 K/uL (1.40-6.50); Neutrophils % (auto) 56.2 %; Polychromasia 1+
[2022-09-22] MEDS: ATENOLOL 25 MG TABLET PO SCH ×2 (08:33→19:32)
[2022-09-22] MEDS: DOXYCYCLINE HYCLATE 100 MG CAP PO SCH ×2 (08:34→19:32)
[2022-09-22] MEDS: ASCORBIC ACID 500 MG TAB PO SCH (08:34)
[2022-09-22] MEDS: DIGOXIN 0.125 MG TAB PO SCH (08:34)
[2022-09-22] MEDS: APIXABAN 5 MG TABLET PO SCH ×2 (08:35→19:32)
--- NOTE | 2022-09-22 13:07 | Hospitalist Progress Note ---
Date of Service September 22, 2022 Assessment & Plan (1) Fever: (2) Hyponatremia: (3) Thrombocytopenia: (4) History of prostate cancer: Plan: Patient is a 72-year-old male with past medical history of A-fib on Eliquis, hyperlipidemia, radical prostatectomy presents to the ED with fever, UTI symptoms and dizziness. Tmax of 101 F at home Labs reviewed; lymphopenia and thrombocytopenia present. Sodium of 129 on presentation; improved to [address] head, CTA head and neck negative for acute finding. Urinalysis not suggestive of infection. Lyme IgG/IgM negative Blood culture pending Anaplasma smear, Babesia smear negative; serology pending Continue on empiric ceftriaxone and doxycycline. Obtain stool studies and C. difficile as patient is complaining of diarrhea. Continue to monitor CBC daily for lymphopenia and thrombocytopenia. Discontinue IV fluids. Other conditions; Atrial fibrillation; EKG personally reviewed; A-fib with controlled heart rate. Continue on Eliquis, digoxin and atenolol. Monitor on telemetry History of prostate cancer status post prostatectomy Hyperlipidemianot on statin. Time spent evaluating patient, direct bedside care, chart review, placing orders, interpretation of diagnostic studies, discussion with consultants, patient, and family members, as well as other required patient management activities is 60 minutes. Please note the above document was generated using voice recognition software. It may contain grammatical, syntax or spelling errors. Any formal questions or concerns about the content, text or information contained within the body of this dictation should be directly addressed to the provider for clarification Admission and Anticipated Discharge Date Admission Date: September 21, 2022 Subjective Patient seen and examined at bedside. He is sitting up on the chair; not in any distress. Reports that the dizziness has improved compared to admission. Reports multiple episode of diarrhea. No blood or mucus seen. Review of Systems Review of Systems: All systems reviewed & are unremarkable except as noted in Subjective Physical Exam Physical Exam: Constitutional: Awake, alert orient x3; not in distress. Respiratory: Bilateral vesicular l breath sound Cardiovascular: Irregular, no murmur, no edema Vessels: no JVD or carotid bruit Chest: normal inspection of chest Abdomen: normal bowel sounds, soft, nontender, no hepatosplenomegaly Musculoskeletal: no cyanosis or clubbing, extremities motor strength 5/5 Skin: no rashes, warm and dry normal turgor Neurologic: Urine output 2-12 intact Strength 5/5 throughout Sensation intact throughout Finger-nose test intact Psychiatric: A+Ox3, euthymic affect Results & Data Results & Data Vital Signs (Past 12 Hours) Vital Signs Temp Pulse Pulse Resp BP Pulse Ox O2 Del Method 09/22/22 11:38 81 18 111/73 95 Room Air 09/22/22 08:34 87 09/22/22 07:47 36.9 C 87 18 113/77 92 Room Air 09/22/22 07:17 86 09/22/22 03:51 37.7 C H 95 H 20 109/67 93 Room Air Laboratory Results Laboratory Results WBC 2.72 K/ul (4.8-10.8) L 09/22/22 06:15 RBC 4.77 M/uL (4.70-6.10) 09/22/22 06:15 Hgb 14.8 g/dl (14.0-18.0) 09/22/22 06:15 Hct 41.1 % (42.0-52.0) L 09/22/22 06:15 MCV 86.2 fL (80.0-100.0) 09/22/22 06:15 MCH 31.0 pg (25.0-34.0) 09/22/22 06:15 MCHC 36.0 g/dL (32.0-36.0) 09/22/22 06:15 RDW Std Deviation 39.9 fL (36.4-46.3) 09/22/22 06:15 RDW Coeff of Bessy 12.6 % (11.5-14.5) 09/22/22 06:15 Plt Count 82 K/uL (130-400) L 09/22/22 06:15 MPV 12.3 fL (9.4-12.4) 09/22/22 06:15 Immature Gran % (Auto) 0.4 % 09/22/22 06:15 Neut % (Auto) 56.2 % 09/22/22 06:15 Lymph % (Auto) 26.8 % 09/22/22 06:15 [place] % (Auto) 16.2 % 09/22/22 06:15 Eos % (Auto) 0.0 % 09/22/22 06:15 Baso % (Auto) 0.4 % 09/22/22 06:15 Neut # (Auto) 1.53 K/uL (1.40-6.50) 09/22/22 06:15 Lymph # (Auto) 0.73 K/uL (1.2-3.4) L 09/22/22 06:15 [place] # (Auto) 0.44 K/uL (0.11-0.59) 09/22/22 06:15 Eos # (Auto) 0.00 K/uL (0-0.50) 09/22/22 06:15 Baso # (Auto) 0.01 K/uL (0-0.2) 09/22/22 06:15 Immature Gran # (Auto) 0.01 K/uL (0.01-0.20) 09/22/22 06:15 Polychromasia 1+ 09/22/22 06:15 Tear Drop Cells 1+ 09/21/22 12:50 Echinocytes 1+ 09/21/22 12:50 Acanthocytes (Spur) 1+ 09/22/22 06:15 Sodium 135 mmol/L (136-145) L 09/22/22 06:15 Potassium 3.7 mmol/L (3.5-5.1) 09/22/22 06:15 Chloride 102 mmol/L (98-107) 09/22/22 06:15 Carbon Dioxide 26 mmol/L (21-32) 09/22/22 06:15 Anion Gap 7 (3-11) 09/22/22 06:15 BUN 11 mg/dl (6-23) 09/22/22 06:15 Creatinine 0.76 mg/dl (0.6-1.4) 09/22/22 06:15 Est Cr Clr Drug Dosing 87.5 ml/min 09/22/22 06:15 Est GFR ( Amer) 107.1 ml/min 09/22/22 06:15 Est GFR (Non-Af Amer) 92.4 ml/min 09/22/22 06:15 BUN/Creatinine Ratio 14.5 (10-20) 09/22/22 06:15 Glucose 88 mg/dl (70-99(Fasting)) 09/22/22 06:15 POC Glucose 106 mg/dl (70-99) H 09/21/22 16:13 Calcium 7.9 mg/dl (8.6-10.3) L 09/22/22 06:15 Total Bilirubin 0.8 mg/dl (0.2-1.0) D 09/22/22 06:15 AST 47 U/L (13-39) H 09/22/22 06:15 ALT 34 U/L (7-52) 09/22/22 06:15 Alkaline Phosphatase 89 U/L (34-104) 09/22/22 06:15 Troponin I High Sens 9.0 pg/ml (0-20) 09/21/22 12:50 Total Protein 5.8 gm/dl (6.0-8.3) L 09/22/22 06:15 Albumin 3.4 gm/dl (3.4-5.0) 09/22/22 06:15 Globulin 2.4 gm/dl (2.5-4.0) L 09/22/22 06:15 Albumin/Globulin Ratio 1.4 (0.9-2) 09/22/22 06:15 Urine Color Yellow 09/21/22 12:50 Urine Appearance Clear (Clear) 09/21/22 12:50 Urine pH 6.0 (4.5-7.5) 09/21/22 12:50 Ur Specific [place] 1.005 (1.000-1.030) 09/21/22 12:50 Urine Protein Negative (Negative) 09/21/22 12:50 Urine Glucose (UA) Negative (Negative) 09/21/22 12:50 Urine Ketones Negative (Negative) 09/21/22 12:50 Urine Blood 2+ (Negative) H 09/21/22 12:50 Urine Nitrite Negative (Negative) 09/21/22 12:50 Urine Bilirubin Negative (Negative) 09/21/22 12:50 Urine Urobilinogen Negative (Negative) 09/21/22 12:50 Ur Leukocyte Esterase Negative (Negative) 09/21/22 12:50 Urine WBC (Auto) 1-5 /hpf (0-5) 09/21/22 12:50 Urine RBC (Auto) 5-10 /hpf (0-4) H 09/21/22 12:50 U Hyaline Cast (Auto) 0 /lpf (0-5) 09/21/22 12:50 U Epithel Cells (Auto) 0-5 /lpf (0-5) 09/21/22 12:50 Urine Bacteria (Auto) Negative (Negative) 09/21/22 12:50 Urine Osmolality 135 mOsm/kg (500-800) L 09/21/22 12:50 Urine Sodium < 10 mmol/L 09/21/22 12:50 Urine Potassium 10.9 mmol/L 09/21/22 12:50 Urine Chloride 27 mmol/L 09/21/22 12:50 Digoxin 0.6 ng/ml (0.8-2.0) L 09/21/22 12:50 Anaplasma Smear See Comment 09/21/22 18:45 Babesia Smear See Comment 09/21/22 18:45 Lyme Disease IgG Ab Negative (Negative) 09/21/22 12:50 Lyme Disease IgM Ab Negative (Negative) 09/21/22 12:50 SARS-CoV-2, RNA, NAAT NEGATIVE (NEGATIVE) 09/21/22 16:[address] 09/21/22 12:42 CT OF THE HEAD WITHOUT CONTRAST CLINICAL HISTORY: +romberg, disequilibrium COMPARISON STUDY: Head CT August 11, 2019. TECHNIQUE: Helical axial images of the head were obtained without IV contrast. Automated exposure control was utilized for the study. A dose lowering technique was utilized adhering to the principles of ALARA. FINDINGS: No acute intracranial hemorrhage, midline shift or mass effect is present. The ventricular system is unremarkable. The basal cisterns are patent. No extra-axial collections are present. There are no findings to suggest acute dural sinus thrombosis or acute territorial infarct. No significant calvarial abnormalities are present. Visualized portions of the sinuses and mastoid air cells are clear. IMPRESSION: No acute intracranial findings. ACT 112: Negative or not required by law. Electronically signed by: Valente Blanco M.D. 09/21/2022 3:17 PM Head CTA 09/21/22 12:42 CTA ANGIOGRAPHY OF THE HEAD CLINICAL HISTORY: +romberg, disequilibrium COMPARISON STUDY: Head CT August 11, 2019. TECHNIQUE: Helical axial images of the head were obtained following uneventful intravenous administration of 118 cc of Optiray. Sagittal and coronal reconstructions were viewed as well as maximal intensity projections on an independent 3-D workstation. Automated exposure control was utilized for the study. A dose lowering technique was utilized adhering to the principles of ALARA. FINDINGS: No acute intracranial hemorrhage is identified on the head CT which will be reported separately. Ventricular system is normal. Basal cisterns are patent. There are no extra-axial collections. The bilateral M1, M2, A1 and A2 segments are patent. Posterior circulation is intact. There is no central vessel occlusion. There is no intracranial aneurysm. IMPRESSION: Unremarkable CTA of the head. ACT 112: Negative or not required by law. Electronically signed by: Valente Blanco M.D. 09/21/2022 3:35 PM Neck CTA 09/21/22 12:42 CT ANGIOGRAPHY OF THE NECK WITH CONTRAST CLINICAL HISTORY: +romberg, disequilibrium COMPARISON STUDY: No previous studies for comparison. Technique: CT angiography of the carotid and vertebral arteries was obtained using Optiray and 3D reconstruction on an independent workstation. NASCET criteria was utilized. Automated exposure control was utilized for the study. A dose lowering technique was utilized adhering to the principles of ALARA. CT DOSE: 976.42 mGy.cm Findings: Visualized portions of the lung apices are unremarkable. There is no cervical lymphadenopathy. There is no cervical spine fracture. The bilateral common carotid, cervical internal carotid and vertebral arteries are patent. There is no stenosis or dissection within these vessels. There is no aneurysm within the neck. There is mild plaque within the proximal left internal carotid artery without stenosis. CTA of the head will be reported separately. IMPRESSION: No stenosis or dissection within the bilateral common carotid, cervical internal carotid or vertebral arteries. ACT 112: Negative or not required by law. Electronically signed by: Valente Blanco M.D. 09/21/2022 3:27 PM
[2022-09-22 16:13] LABS: Adenovirus F 40/41 PCR Not Detected (NotDetected); Astrovirus PCR Not Detected (NotDetected); Campylobacter PCR Not Detected (NotDetected); Cryptosporidium PCR Not Detected (NotDetected); Cyclospora cayetanensis PCR Not Detected (NotDetected); Entamoeba histolytica PCR Not Detected (NotDetected); Enteroaggregative E.coli(EAEC) Not Detected (NotDetected); Enteropathogenic E.coli (EPEC) Not Detected (NotDetected); Enterotoxigenic E.coli (ETEC) Not Detected (NotDetected); Giardia lamblia PCR Not Detected (NotDetected); Norovirus GI/GII PCR Not Detected (NotDetected); Plesiomonas shigelloides PCR Not Detected (NotDetected); Rotavirus A PCR Not Detected (NotDetected); Salmonella PCR Not Detected (NotDetected); Sapovirus PCR Not Detected (NotDetected); Shiga-like Toxin E.coli (STEC) Not Detected (NotDetected); Shigella/Enteroinvasive E.coli Not Detected (NotDetected); Vibrio cholerae PCR Not Detected (NotDetected); Vibrio species PCR Not Detected (NotDetected); Yersinia enterocolitica PCR Not Detected (NotDetected)
[2022-09-22] MEDS: cefTRIAXone SODIUM 2,000 MG in DEXTROSE 5% 50 ML IV SCH (18:19)
[2022-09-23 06:46] LABS: Albumin Globulin Ratio 1.4 (0.9-2); Albumin Level 3.4 gm/dl (3.4-5.0); Bilirubin,Total 0.6 mg/dl (0.2-1.0); Calcium 8.3 mg/dl (8.6-10.3); Creatinine Clr Calc Pharmacy 83.1 ml/min; Est GFR (African American) 104.9 ml/min; Est GFR (Non-African American) 90.5 ml/min; Globulin 2.5 gm/dl (2.5-4.0); Potassium 3.5 mmol/L (3.5-5.1); Total Protein 5.9 gm/dl (6.0-8.3)
[2022-09-23 06:51] LABS: Hematocrit (blood only) 40.7 % (42.0-52.0); Hemoglobin 14.3 g/dl (14.0-18.0); Mean Corpuscular Hemoglobin 31.1 pg (25.0-34.0); Mean Corpuscular Hgb Conc 35.1 g/dL (32.0-36.0); Mean Corpuscular Volume 88.5 fL (80.0-100.0); Mean Platelet Volume 11.8 fL (9.4-12.4); Platelet Count 97 K/uL (130-400); RDW Coefficient of Variation 12.7 % (11.5-14.5); RDW Standard Deviation 41.1 fL (36.4-46.3); White Blood Count 4.47 K/ul (4.8-10.8)
[2022-09-23 06:58] LABS: Basophils # (auto) 0.02 K/uL (0-0.2); Basophils % (auto) 0.4 %; Eosinophils # (auto) 0.02 K/uL (0-0.50); Eosinophils % (auto) 0.4 %; Immature Granulocytes # (auto) 0.01 K/uL (0.01-0.20); Immature Granulocytes % (auto) 0.2 %; Lymphocytes # (auto) 1.46 K/uL (1.2-3.4); Lymphocytes % (auto) 32.7 %; Monocytes # (auto) 0.91 K/uL (0.11-0.59); Monocytes % (auto) 20.4 %; Neutrophils # (auto) 2.05 K/uL (1.40-6.50); Neutrophils % (auto) 45.9 %
[2022-09-23] MEDS: DOXYCYCLINE HYCLATE 100 MG CAP PO SCH (08:21)
[2022-09-23] MEDS: ATENOLOL 25 MG TABLET PO SCH ×2 (08:21→20:40)
[2022-09-23] MEDS: APIXABAN 5 MG TABLET PO SCH ×2 (08:21→20:32)
[2022-09-23] MEDS: ASCORBIC ACID 500 MG TAB PO SCH (08:22)
[2022-09-23] MEDS: DIGOXIN 0.125 MG TAB PO SCH (08:22)
--- NOTE | 2022-09-23 08:32 | Electrocardiogram Report ---
Test Reason : Blood Pressure : / mmHG Vent. Rate : 074 BPM Atrial Rate : 074 BPM P-R Int : 000 ms QRS Dur : 088 ms QT Int : 374 ms P-R-T Axes : 000 -68 -77 degrees QTc Int : 415 ms Atrial fibrillation Low voltage QRS Left anterior fascicular block Abnormal ECG When compared with ECG of 22-SEP-2022 05:40, No significant change Confirmed by Chinedu Clark ([id number]) on 09/23/2022 8:32:03 AM Referred By: REFERRED SELF Confirmed By:Chinedu Clark
[2022-09-23] MEDS: CHOLESTYRAMINE LIGHT 4 GM PKT PO SCH ×2 (09:43→22:11)
[2022-09-23] MEDS ORDERED: OPTIRAY 320 100ml IV ONE (11:57)
--- NOTE | 2022-09-23 12:33 | CT Scan Report ---
ABDOMEN AND PELVIS CT WITH IV CONTRAST CT DOSE: 964.90 mGy.cm HISTORY: Persistent diarrhea, LLQ pain TECHNIQUE: Multiaxial CT images of the abdomen and pelvis were performed following the use of intrave nous contrast. A dose lowering technique was utilized adhering to the principles of ALARA. COMPARISON STUDY: Abdomen and pelvis CT 05/15/2011. FINDINGS: The lung bases are clear. No pneumoperitoneum. No pneumatosis. Sclerotic foci within the po sterior iliac bones are nonspecific but favor bone islands. Dominant sclerotic focus on the right paula sures 1.5 cm. No acute fractures identified. The heart is borderline enlarged. There is mild circumfe rential thickening of the distal esophagus. Cholecystectomy. There is a 2 cm cyst within the left hep atic lobe. This has slightly increased in size. The spleen is mildly enlarged measuring 14 cm in alma th. The adrenal glands and pancreas are unremarkable. There are few subcentimeter hypodense lesions w ithin the kidneys. These are technically too small to characterize but statistically represent cysts. No renal or ureteral stones. No hydronephrosis. The bladder is decompressed resulting in suboptimal evaluation. Prior prostatectomy. Prior pelvic lymph node dissection. No pelvic lymphadenopathy. There is trace pelvic free fluid. The main portal vein is patent. Normal caliber abdominal aorta. Subcenti meter retroperitoneal lymph nodes do not meet CT criteria for pathologic involvement. Colonic diverti culosis. Fluid-filled large and small bowel. This can be seen in the setting of a diarrheal illness/g astroenteritis. Questionable thickening at the distal transverse colon is likely due to underdistenti on. No dilated loops of bowel to suggest an obstruction. There is a single inflamed diverticulum with in the junction of the descending colon/sigmoid colon best seen on image 209 with mild pericolonic fa t stranding. This is consistent with a mild acute diverticulitis. No perforation or abscess at this t claude. IMPRESSION: 1. Acute diverticulitis at the junction of the descending colon/sigmoid colon. No perforation or absc ess at this time. 2. Fluid-filled large bowel which can be seen in the setting of a gastroenteritis. 3. No evidence for a bowel obstruction. 4. Mild circumferential thickening of the distal esophagus. This may represent a mild esophagitis. 5. Mild splenomegaly. 6. Additional findings as described above.. ACT 112: Negative or not required by law. Electronically signed by: Leobardo Mccarthy M.D. 09/23/2022 12:31 PM
--- NOTE | 2022-09-23 13:07 | Hospitalist Progress Note ---
Date of Service September 23, 2022 Assessment & Plan (1) Fever: (2) Hyponatremia: (3) Thrombocytopenia: (4) Acute diverticulitis: (5) History of prostate cancer: Plan: Patient is a 72-year-old male with past medical history of A-fib on Eliquis, hyperlipidemia, radical prostatectomy presents to the ED with fever, UTI symptoms and dizziness. Tmax of 101 F at home Labs reviewed; lymphopenia and thrombocytopenia present, improving. Sodium of 129 on presentation; EYES: Pupils round equal and react to light, extraocular movements full, no injection. CT head, CTA head and neck negative for acute finding. Urinalysis not suggestive of infection. Lyme IgG/IgM negative Blood culture no growth till date Anaplasma smear, Babesia smear negative; serology pending Stool PCR and C. difficile negative CT abdomen pelvis obtained due to persistent abdominal pain; found to have acute diverticulitis at junction of descending colon/sigmoid colon. Flagyl added to ceftriaxone given the finding in the CT abdomen /pelvis. Patient reports chronic diarrhea which has increased in frequency recently. He reports diarrhea started after cholecystectomy. Started on cholestyramine. GI consulted for the diarrhea and comanagement of acute diverticulitis. Continue to monitor CBC daily for lymphopenia and thrombocytopenia. Encourage oral intake. Other conditions; Atrial fibrillation; EKG personally reviewed; A-fib with controlled heart rate. Continue on Eliquis, digoxin and atenolol. Monitor on telemetry History of prostate cancer status post prostatectomy Hyperlipidemianot on statin. Time spent evaluating patient, direct bedside care, chart review, placing order s, interpretation of diagnostic studies, discussion with consultants, patient, and family members, as well as other required patient management activities is 60 minutes. Please note the above document was generated using voice recognition software. It may contain grammatical, syntax or spelling errors. Any formal questions or concerns about the content, text or information contained within the body of this dictation should be directly addressed to the provider for clarification Admission and Anticipated Discharge Date Admission Date: September 21, 2022 Subjective Patient seen and examined at bedside. He continues to report of multiple episodes of diarrhea. Also has some left lower quadrant abdominal pain. Afebrile overnight Review of Systems Review of Systems: All systems reviewed & are unremarkable except as noted in Subjective Physical Exam Physical Exam: Constitutional: Awake, alert orient x3; not in distress. Respiratory: Bilateral vesicular l breath sound Cardiovascular: Irregular, no murmur, no edema Vessels: no JVD or carotid bruit Chest: normal inspection of chest Abdomen: Soft. Mild tenderness in left lower quadrant. Musculoskeletal: no cyanosis or clubbing, extremities motor strength 5/5 Skin: no rashes, warm and dry normal turgor Neurologic: Urine output 2-12 intact Strength 5/5 throughout Sensation intact throughout Finger-nose test intact Psychiatric: A+Ox3, euthymic affect Results & Data Results & Data Vital Signs (Past 12 Hours) Vital Signs Temp Pulse Pulse Resp BP Pulse Ox O2 Del Method 09/23/22 10:55 36.8 C 76 18 95/65 L 97 Room Air 09/23/22 07:15 75 09/23/22 08:22 62 09/23/22 07:39 36.9 C 62 18 116/78 95 Room Air 09/23/22 02:39 36.8 C 88 18 113/84 95 Room Air Laboratory Results Laboratory Results WBC 4.47 K/ul (4.8-10.8) L 09/23/22 06:06 RBC 4.60 M/uL (4.70-6.10) L 09/23/22 06:06 Hgb 14.3 g/dl (14.0-18.0) 09/23/22 06:06 Hct 40.7 % (42.0-52.0) L 09/23/22 06:06 MCV 88.5 fL (80.0-100.0) 09/23/22 06:06 MCH 31.1 pg (25.0-34.0) 09/23/22 06:06 MCHC 35.1 g/dL (32.0-36.0) 09/23/22 06:06 RDW Std Deviation 41.1 fL (36.4-46.3) 09/23/22 06:06 RDW Coeff of Bessy 12.7 % (11.5-14.5) 09/23/22 06:06 Plt Count 97 K/uL (130-400) L 09/23/22 06:06 MPV 11.8 fL (9.4-12.4) 09/23/22 06:06 Immature Gran % (Auto) 0.2 % 09/23/22 06:06 Neut % (Auto) 45.9 % 09/23/22 06:06 Lymph % (Auto) 32.7 % 09/23/22 06:06 [place] % (Auto) 20.4 % 09/23/22 06:06 Eos % (Auto) 0.4 % 09/23/22 06:06 Baso % (Auto) 0.4 % 09/23/22 06:06 Neut # (Auto) 2.05 K/uL (1.40-6.50) 09/23/22 06:06 Lymph # (Auto) 1.46 K/uL (1.2-3.4) 09/23/22 06:06 [place] # (Auto) 0.91 K/uL (0.11-0.59) H 09/23/22 06:06 Eos # (Auto) 0.02 K/uL (0-0.50) 09/23/22 06:06 Baso # (Auto) 0.02 K/uL (0-0.2) 09/23/22 06:06 Immature Gran # (Auto) 0.01 K/uL (0.01-0.20) 09/23/22 06:06 Polychromasia 1+ 09/22/22 06:15 Tear Drop Cells 1+ 09/21/22 12:50 Echinocytes 1+ 09/21/22 12:50 Acanthocytes (Spur) 1+ 09/22/22 06:15 Peripher Smr Path Cons 09/21/22 18:45 Sodium 136 mmol/L (136-145) 09/23/22 06:06 Potassium 3.5 mmol/L (3.5-5.1) 09/23/22 06:06 Chloride 102 mmol/L (98-107) 09/23/22 06:06 Carbon Dioxide 28 mmol/L (21-32) 09/23/22 06:06 Anion Gap 6 (3-11) 09/23/22 06:06 BUN 12 mg/dl (6-23) 09/23/22 06:06 Creatinine 0.80 mg/dl (0.6-1.4) 09/23/22 06:06 Est Cr Clr Drug Dosing 83.1 ml/min 09/23/22 06:06 Est GFR ( Amer) 104.9 ml/min 09/23/22 06:06 Est GFR (Non-Af Amer) 90.5 ml/min 09/23/22 06:06 BUN/Creatinine Ratio 15.0 (10-20) 09/23/22 06:06 Glucose 96 mg/dl (70-99(Fasting)) 09/23/22 06:06 POC Glucose 106 mg/dl (70-99) H 09/21/22 16:13 Calcium 8.3 mg/dl (8.6-10.3) L 09/23/22 06:06 Total Bilirubin 0.6 mg/dl (0.2-1.0) 09/23/22 06:06 AST 40 U/L (13-39) H 09/23/22 06:06 ALT 34 U/L (7-52) 09/23/22 06:06 Alkaline Phosphatase 99 U/L (34-104) 09/23/22 06:06 Troponin I High Sens 9.0 pg/ml (0-20) 09/21/22 12:50 Total Protein 5.9 gm/dl (6.0-8.3) L 09/23/22 06:06 Albumin 3.4 gm/dl (3.4-5.0) 09/23/22 06:06 Globulin 2.5 gm/dl (2.5-4.0) 09/23/22 06:06 Albumin/Globulin Ratio 1.4 (0.9-2) 09/23/22 06:06 Urine Color Yellow 09/21/22 12:50 Urine Appearance Clear (Clear) 09/21/22 12:50 Urine pH 6.0 (4.5-7.5) 09/21/22 12:50 Ur Specific [place] 1.005 (1.000-1.030) 09/21/22 12:50 Urine Protein Negative (Negative) 09/21/22 12:50 Urine Glucose (UA) Negative (Negative) 09/21/22 12:50 Urine Ketones Negative (Negative) 09/21/22 12:50 Urine Blood 2+ (Negative) H 09/21/22 12:50 Urine Nitrite Negative (Negative) 09/21/22 12:50 Urine Bilirubin Negative (Negative) 09/21/22 12:50 Urine Urobilinogen Negative (Negative) 09/21/22 12:50 Ur Leukocyte Esterase Negative (Negative) 09/21/22 12:50 Urine WBC (Auto) 1-5 /hpf (0-5) 09/21/22 12:50 Urine RBC (Auto) 5-10 /hpf (0-4) H 09/21/22 12:50 U Hyaline Cast (Auto) 0 /lpf (0-5) 09/21/22 12:50 U Epithel Cells (Auto) 0-5 /lpf (0-5) 09/21/22 12:50 Urine Bacteria (Auto) Negative (Negative) 09/21/22 12:50 Urine Osmolality 135 mOsm/kg (500-800) L 09/21/22 12:50 Urine Sodium < 10 mmol/L 09/21/22 12:50 Urine Potassium 10.9 mmol/L 09/21/22 12:50 Urine Chloride 27 mmol/L 09/21/22 12:50 Stl C. cayetanensis PCR Not Detected (NotDetected) 09/22/22 14:05 Stool Rotavirus A PCR Not Detected (NotDetected) 09/22/22 14:05 Stl Adenov F 40/41 PCR Not Detected (NotDetected) 09/22/22 14:05 Stool Astrovirus (PCR) Not Detected (NotDetected) 09/22/22 14:05 Stool Campylobacter PCR Not Detected (NotDetected) 09/22/22 14:05 Stl C. diff Tox B Gene Negative Cdiff Gene (Neg) 09/22/22 14:05 Stool Cryptosporidium PCR Not Detected (NotDetected) 09/22/22 14:05 Stl E.coli Shiga Tox PCR Not Detected (NotDetected) 09/22/22 14:05 Stl Enterotoxigenic E PCR Not Detected (NotDetected) 09/22/22 14:05 Stool EPEC (PCR) Not Detected (NotDetected) 09/22/22 14:05 Stool EAEC (PCR) Not Detected (NotDetected) 09/22/22 14:05 Stl E. histolytica PCR Not Detected (NotDetected) 09/22/22 14:05 Stool Giardia Lamblia PCR Not Detected (NotDetected) 09/22/22 14:05 Stool Salmonella PCR Not Detected (NotDetected) 09/22/22 14:05 Stool Sapovirus (PCR) Not Detected (NotDetected) 09/22/22 14:05 Stl P. shigelloides PCR Not Detected (NotDetected) 09/22/22 14:05 Stl Shigella/EIEC PCR Not Detected (NotDetected) 09/22/22 14:05 St Y.enterocolitica PCR Not Detected (NotDetected) 09/22/22 14:05 Stool Vibrio (PCR) Not Detected (NotDetected) 09/22/22 14:05 Stl Vibrio cholerae PCR Not Detected (NotDetected) 09/22/22 14:05 Stl Norovirus GI/GII PCR Not Detected (NotDetected) 09/22/22 14:05 Digoxin 0.6 ng/ml (0.8-2.0) L 09/21/22 12:50 Anaplasma Smear See Comment 09/21/22 18:45 Babesia Smear See Comment 09/21/22 18:45 Lyme Disease IgG Ab Negative (Negative) 09/21/22 12:50 Lyme Disease IgM Ab Negative (Negative) 09/21/22 12:50 SARS-CoV-2, RNA, NAAT NEGATIVE (NEGATIVE) 09/21/22 16:[address] 09/21/22 12:42 CT OF THE HEAD WITHOUT CONTRAST CLINICAL HISTORY: +vicki pringle COMPARISON STUDY: Head CT August 11, 2019. TECHNIQUE: Helical axial images of the head were obtained without IV contrast. Automated exposure control was utilized for the study. A dose lowering technique was utilized adhering to the principles of ALARA. FINDINGS: No acute intracranial hemorrhage, midline shift or mass effect is present. The ventricular system is unremarkable. The basal cisterns are patent. No extra-axial collections are present. There are no findings to suggest acute dural sinus thrombosis or acute territorial infarct. No significant calvarial abnormalities are present. Visualized portions of the sinuses and mastoid air cells are clear. IMPRESSION: No acute intracranial findings. ACT 112: Negative or not required by law. Electronically signed by: Valente Blanco M.D. 09/21/2022 3:17 PM Head CTA 09/21/22 12:42 CTA ANGIOGRAPHY OF THE HEAD CLINICAL HISTORY: +vicki pringle COMPARISON STUDY: Head CT August 11, 2019. TECHNIQUE: Helical axial images of the head were obtained following uneventful intravenous administration of 118 cc of Optiray. Sagittal and coronal reconstructions were viewed as well as maximal intensity projections on an independent 3-D workstation. Automated exposure control was utilized for the study. A dose lowering technique was utilized adhering to the principles of ALARA. FINDINGS: No acute intracranial hemorrhage is identified on the head CT which will be reported separately. Ventricular system is normal. Basal cisterns are patent. There are no extra-axial collections. The bilateral M1, M2, A1 and A2 segments are patent. Posterior circulation is intact. There is no central vessel occlusion. There is no intracranial aneurysm. IMPRESSION: Unremarkable CTA of the head. ACT 112: Negative or not required by law. Electronically signed by: Valente Blanco M.D. 09/21/2022 3:35 PM Neck CTA 09/21/22 12:42 CT ANGIOGRAPHY OF THE NECK WITH CONTRAST CLINICAL HISTORY: +romberg, disequilibrium COMPARISON STUDY: No previous studies for comparison. Technique: CT angiography of the carotid and vertebral arteries was obtained using Optiray and 3D reconstruction on an independent workstation. NASCET criteria was utilized. Automated exposure control was utilized for the study. A dose lowering technique was utilized adhering to the principles of ALARA. CT DOSE: 976.42 mGy.cm Findings: Visualized portions of the lung apices are unremarkable. There is no cervical lymphadenopathy. There is no cervical spine fracture. The bilateral common carotid, cervical internal carotid and vertebral arteries are patent. There is no stenosis or dissection within these vessels. There is no aneurysm within the neck. There is mild plaque within the proximal left internal carotid artery without stenosis. CTA of the head will be reported separately. IMPRESSION: No stenosis or dissection within the bilateral common carotid, cervical internal carotid or vertebral arteries. ACT 112: Negative or not required by law. Electronically signed by: Valente Blanco M.D. 09/21/2022 3:27 PM Abdomen/Pelvis CT 09/23/22 09:[address] WITH IV CONTRAST CT DOSE: 964.90 mGy.cm HISTORY: Persistent diarrhea, LLQ pain TECHNIQUE: Multiaxial CT images of the abdomen and pelvis were performed following the use of intravenous contrast. A dose lowering technique was utilized adhering to the principles of ALARA. COMPARISON STUDY: Abdomen and pelvis CT 05/15/2011. FINDINGS: The lung bases are clear. No pneumoperitoneum. No pneumatosis. Scle rotic foci within the posterior iliac bones are nonspecific but favor bone islands. Dominant sclerotic focus on the right measures 1.5 cm. No acute fractures identified. The heart is borderline enlarged. There is mild circumferential thickening of the distal esophagus. Cholecystectomy. There is a 2 cm cyst within the left hepatic lobe. This has slightly increased in size. The spleen is mildly enlarged measuring 14 cm in length. The adrenal glands and pancreas are unremarkable. There are few subcentimeter hypodense lesions within the kidneys. These are technically too small to characterize but statistically represent cysts. No renal or ureteral stones. No hydronephrosis. The bladder is decompressed resulting in suboptimal evaluation. Prior prostatectomy. Prior pelvic lymph node dissection. No pelvic lymphadenopathy. There is trace pelvic free fluid. The main portal vein is patent. Normal caliber abdominal aorta. Subcentimeter retroperitoneal lymph nodes do not meet CT criteria for pathologic involvement. Colonic diverticulosis. Fluid-filled large and small bowel. This can be seen in the setting of a diarrheal illness/gastroenteritis. Questionable thickening at the distal transverse colon is likely due to underdistention. No dilated loops of bowel to suggest an obstruction. There is a single inflamed diverticulum within the junction of the descending colon/sigmoid colon best seen on image 209 with mild pericolonic fat stranding. This is consistent with a mild acute diverticulitis. No perforation or abscess at this time. IMPRESSION: 1. Acute diverticulitis at the junction of the descending colon/sigmoid colon. No perforation or abscess at this time. 2. Fluid-filled large bowel which can be seen in the setting of a gastroenteritis. 3. No evidence for a bowel obstruction. 4. Mild circumferential thickening of the distal esophagus. This may represent a mild esophagitis. 5. Mild splenomegaly. 6. Additional findings as described above.. ACT 112: Negative or not required by law. Electronically signed by: Leobardo Mccarthy M.D. 09/23/2022 12:31 PM
[2022-09-23] MEDS: metroNIDAZOLE 500 MG/100 ML BAG IV SCH ×2 (14:01→20:32)
--- NOTE | 2022-09-23 14:15 | Gastrointestinal Consultation ---
Date of Consultation September 23, 2022 Assessment & Plan (1) Acute diverticulitis: Agree w broad antibiotics (currently on ceftriaxone/flagyl) for diverticulitis. Recommend antibiotics x 2 wks. Advance diet as tolerated. Will plan for OP Colonoscopy for f/u diverticulitis in 6-8 wks. Our office will contact him to arrange. (2) Chronic diarrhea: tTG, IGA Stools for C-diff, GI pathogens. Plan As above. GI will sign off. Recall if symptoms worsen. Supervising Physician Co-Signing Physician Notes I saw and evalauted the patient. We were asked to see the patient with regard to chronic diarrhea, ongoing or 3 to 5 years in addition to a CT with a question of left sided diverticulitis. The patinet was admitted with a fever but denies having abdominal pain today. He believes he has 3 to 4 semiformed bm per day, unchanged over many years, prior colonoscopy with Dr. Barragan in 2017 notable for a polyp and diverticulosis. PE:nad, no addominal tenderness Impression: patient admitted with fever found to have diverticulitis on CT without an obvious abscess or perforation. I would suggest conservative managment with a broad spectrum antibiotics for 2 weeks and continued IV hydration while an inpatient. We would also suggest stool cultures/c diff studies in addition to an OP colonoscopy in 6 to 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 History of Present Illness Reason for Consultation: Persistent diarrhea Requesting Physician: Dr. Salvador Attending Physician: Alessandro Salvador MD History of Present Illness Mr. Elías Chaves is a 72 yr old male pt of Dr. Valdez w a hx of A-fib on Eliquis, hyperlipidemia, radical prostatectomy who presented to the ED with fever and is being tx for UTI and acute diverticulitis. GI is consulted for "persistent diarrhea." The pt tells us that he has had loose stools, 3-4/day for years. CT on arrival w acute diverticulitis. The pt looks well and does not mention abdominal pain and is not tender on exam. Allergies Allergy/AdvReac Type Severity Reaction Status Date / Time apple Allergy Severe THROAT Verified 05/27/22 13:39 SWELLS lizarraga Allergy Severe THROAT Verified 05/27/22 13:39 SWELLS latex AdvReac Mild LOCAL SKIN Verified 05/27/22 13:39 IRRITATION amoxicillin [From Augmentin] AdvReac severe Verified 05/27/22 13:39 diarrhea clavulanic acid AdvReac severe Verified 05/27/22 13:39 [From Augmentin] diarrhea Home Medications Medication Instructions Recorded Confirmed Type turmeric 400 mg capsule 400 mg PO BID 01/14/19 09/21/22 History apixaban 5 mg tablet (Eliquis) 5 mg PO BID 05/27/22 09/21/22 History ascorbic acid (vitamin C) 500 mg 500 mg PO DAILY 05/27/22 09/21/22 History tablet (Vitamin C With Ling Hips) atenolol 25 mg tablet 25 mg PO BID 05/27/22 09/21/22 History digoxin 125 mcg (0.125 mg) tablet 125 mcg PO QAM 05/27/22 09/21/22 History Patient History Medical History Atrial fibrillation F/U [facility] MAHMOOD, [facility] History of anesthesia reaction "BECAME VERY VIOLENT AFTER LAUGHING GAS" History of seizure AN INFANT, HAD SEIZURES WITH HIGH FEVER AND MEASLES Osteoarthritis RT KNEE Prostate cancer HX Surgical History H/O arthroscopic knee surgery History of cholecystectomy History of prostate surgery RADICAL Hx of basal cell carcinoma excision Hx of colonoscopy Hx of left inguinal hernia repair Hx of tonsillectomy Status post right inguinal hernia repair X3 ON THE RIGHT Family History Grandmother Colorectal cancer Father Congestive heart failure Mother Cervical cancer Sister Ovarian cancer Denies family history of Prostate cancer Breast cancer Social History Smoking Status: Never smoker Age Started Using Tobacco: 19; Age Quit Using Tobacco: 32; packs per day: 1.5; Second Hand Exposure: Yes (HX); Do You Dip or Chew Tobacco: Yes (HX-QUIT OVER 20 YEARS AGO; ADVISED); Hx Alcohol Use: Yes Alcohol type: beer and hard liquor Alcohol Intake Frequency Comment: 1-2 drinks per day Hx Substance Use: No Preferred Language: Czech Communication Ability: Effective Visual Impairment: Limited Hearing Ability: Normal 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: No Beliefs That Will Affect Care: None marital status: Current Living Situation: Spouse current occupational status: retired Feels Safe at Home: Yes Childhood Exposure to Second-Hand Smoke: No Diet: regular caffeine: Yes during the past year weight has: remained stable Dental Care, Regularly: Yes Physical Activity Frequency: Daily Seatbelt Use: always Sunscreen Use: Yes Assistive Devices: None Review of Systems Review of Systems: ROS: Gen: + fevers; weakness which improved since admission; no weight loss Eyes: No eye redness, or pain, no recent vision changes Resp: No SOB, no cough Cardio: No palpitations/irregular beats, no chest pain GI: No abdominal pain, no nausea/vomiting : Denies pain on urination Skin: No jaundice, itching or new rashes Physical Exam Constitutional: WD/WN, vitals as above Eyes: PERRL, conjunctivae normal, anicteric sclerae ENMT: external ear and nose normal, oropharynx normal Neck: trachea midline, no thyromegaly Respiratory: normal respiratory effort, lungs clear to auscultation Cardiovascular: RRR, no murmur, no edema Gastrointestinal (Abdomen): normal bowel sounds, soft, nontender, no hepatosplenomegaly Skin: no rashes, warm and dry Neurologic: PERRL, EOMI, accommodation nl, no face palsy, no dysarthria Psychiatric: A+Ox3, euthymic affect Lymphatic: no cervical or axillary lymphadenopathy Results & Data Vital Signs (Past 12 Hours) Vital Signs Temp Pulse Pulse Resp BP Pulse Ox O2 Del Method 09/23/22 10:55 36.8 C 76 18 95/65 L 97 Room Air 09/23/22 07:15 75 09/23/22 08:22 62 09/23/22 07:39 36.9 C 62 18 116/78 95 Room Air 09/23/22 02:39 36.8 C 88 18 113/84 95 Room Air Laboratory Results WBC 9.4, Hb 14.3, HCT 40.7, PLT 97, NA 136, K3.5, CL 102, CO2 28, BUN 12, CR 0.80 glucose 96 T. bili 0.6, AST 40, ALT 34, alk phos 99 Diagnostic Findings CTAP w IV contrast 09/24/23: 1. Acute diverticulitis at the junction of the descending colon/sigmoid colon. No perforation or abscess at this time. 2. Fluid-filled large bowel which can be seen in the setting of a gastroenteritis. 3. No evidence for a bowel obstruction. 4. Mild circumferential thickening of the distal esophagus. This may represent a mild esophagitis. 5. Mild splenomegaly. 6. Additional findings as described above..
[2022-09-23] MEDS: cefTRIAXone SODIUM 2,000 MG in DEXTROSE 5% 50 ML IV SCH (18:13)
[2022-09-23] MEDS ORDERED: NITROGLYCERIN SL 0.4 MG/TAB TAB SL PRN (22:09)
[2022-09-23] MEDS ORDERED: NITROGLYCERIN SL 0.4 MG/TAB TAB SL STA (22:09)
[2022-09-23] MEDS ORDERED: POTASSIUM CHLORIDE CRTAB 20 MEQ TABCR PO STA (22:11)
[2022-09-23] MEDS ORDERED: SODIUM CHLORIDE 0.9% 500 ML IV SCH (22:30)
[2022-09-23] MEDS: DOXYCYCLINE HYCLATE 100 MG in DEXTROSE 5% 100 ML IV SCH (22:38)
[2022-09-23] MEDS ORDERED: LORazepam 0.5 MG TAB PO STA (22:41)
[2022-09-23 23:22] LABS: Magnesium 1.8 mg/dl (1.7-2.4); Potassium 3.8 mmol/L (3.5-5.1)
[2022-09-23 23:28] LABS: Troponin I High Sensitivity 8.7 pg/ml (0-20)
[2022-09-23] MEDS: D5W AND NSS 1,000 ML IV SCH (23:41)
[2022-09-24] MEDS: metroNIDAZOLE 500 MG/100 ML BAG IV SCH ×3 (05:47→20:18)
[2022-09-24 07:37] LABS: Basophils # (auto) 0.03 K/uL (0-0.2); Basophils % (auto) 0.6 %; Echinocytes 1+; Eosinophils # (auto) 0.05 K/uL (0-0.50); Eosinophils % (auto) 0.9 %; Hematocrit (blood only) 39.2 % (42.0-52.0); Hemoglobin 13.8 g/dl (14.0-18.0); Immature Granulocytes # (auto) 0.02 K/uL (0.01-0.20); Immature Granulocytes % (auto) 0.4 %; Lymphocytes # (auto) 2.23 K/uL (1.2-3.4); Lymphocytes % (auto) 41.6 %; Mean Corpuscular Hemoglobin 31.4 pg (25.0-34.0); Mean Corpuscular Hgb Conc 35.2 g/dL (32.0-36.0); Mean Corpuscular Volume 89.1 fL (80.0-100.0); Mean Platelet Volume 11.7 fL (9.4-12.4); Monocytes # (auto) 0.83 K/uL (0.11-0.59); Monocytes % (auto) 15.5 %; Platelet Count 116 K/uL (130-400); RDW Coefficient of Variation 12.7 % (11.5-14.5); RDW Standard Deviation 41.6 fL (36.4-46.3); White Blood Count 5.36 K/ul (4.8-10.8)
[2022-09-24 07:39] LABS: Albumin Globulin Ratio 1.4 (0.9-2); Albumin Level 3.3 gm/dl (3.4-5.0); BUN Creatinine Ratio 13.9 (10-20); Bilirubin,Total 0.4 mg/dl (0.2-1.0); Calcium 8.2 mg/dl (8.6-10.3); Creatinine Clr Calc Pharmacy 92.4 ml/min; Est GFR (African American) 109.5 ml/min; Est GFR (Non-African American) 94.5 ml/min; Globulin 2.3 gm/dl (2.5-4.0); Immunoglobulin A 147.6 mg/dl (70-400); Potassium 3.6 mmol/L (3.5-5.1); Total Protein 5.6 gm/dl (6.0-8.3)
[2022-09-24 07:47] LABS: Troponin I High Sensitivity 76.4 pg/ml (0-20)
[2022-09-24] MEDS: ASCORBIC ACID 500 MG TAB PO SCH (08:15)
[2022-09-24] MEDS: APIXABAN 5 MG TABLET PO SCH ×2 (08:16→20:18)
[2022-09-24] MEDS: ATENOLOL 25 MG TABLET PO SCH ×2 (08:16→20:18)
[2022-09-24] MEDS: DIGOXIN 0.125 MG TAB PO SCH (08:17)
--- NOTE | 2022-09-24 08:30 | Cardiology Consultation ---
Date of Consultation September 24, 2022 Assessment & Plan (1) Chest pain: (2) Wide-complex tachycardia: (3) Abnormal EKG: (4) Acute diverticulitis: (5) Atrial fibrillation with controlled ventricular rate: Plan Patient had episode of chest pain last night, correlating with episode of wide complex tachycardia. Symptoms resolved with one SL nitro. EKG demonstrated atrial fib, controlled rates with ST depression in anterolateral leads, more prominent compared to prior EKG Initial troponin WNL; Repeat troponin at 6:00 AM increased to 76. Repeat troponin pending at time of consult. Patient currently chest pain free. Supplement electrolytes given frequent bouts of diarrhea. Await repeat troponin Await echocardiogram results Await repeat EKG He had a negative nculear stress test in August 2021. May need to consider future work up/evaluation of chest pain after diverticul itis resolves. He has known persistent afib and HR's are adequately controlled. Continue Eliquis, atenolol, digoxin. Check lipids in AM, may need statin. Case discussed with Dr. Mahmood I spent a total of 60 minutes on the date of service in preparation, delivery, and documentation of the care provided to this patient, excluding any time spent in the performance of separately billed services. Gisele Patino PA-C Department of Cardiology, [facility] This chart was completed in part utilizing Speech Voice Recognition Software. Grammatical errors, random word insertions, pronoun errors, and incomplete sentences are an occasional consequence of this system due to software limitations, ambient noise, and hardware issues. Any formal questions or concerns about the content, text, or information contained within the body of this dictation should be directly addressed to the provider for clarification. Supervising Physician Co-Signing Physician Notes Supervising Physician Attestation: I have personally performed a history and physical examination on the patient. I agree with the physician assistant field hockey coach's findings and plan as documented with the following additions. Subjective: Patient presented with symptoms of high fever for several days at home with associated left lower abdominal discomfort and diarrhea. Denies blood in stool. Had a transient episode of chest tightness last night that was associated with a 23 beat run of nonsustained wide-complex tachycardia at 21: 2001 hrs., suggestive of atrial fibrillation with aberrant conduction or nonsustained ventricular tachycardia. He had 2 other episodes of nonsustained wide-complex tachycardia each of 3 beats in duration last night at 22: 58 and 2126. Exam: Cardiovascular: Regular rhythm, no murmurs rubs or gallops Pulmonary: Lungs clear to auscultation bilaterally GI: Soft nontender at the time my exam Data: EKG tracings with subtle anterolateral ST depression that is new compared to the previous tracing performed as an outpatient dated 12/26/2021 Echocardiogram performed this admission revealed mild concentric left ventricu lar hypertrophy with LVEF 55 to 60%, moderate mitral regurgitation, mild tricuspid regurgitation, no regional wall motion abnormalities. Radiology report of CT of the abdomen pelvis performed 09/23/2022: Acute diverticulitis at the junction of the descending colon/sigmoid colon mild circumferential thickening of the distal esophagus noted possibly associated with an esophagitis Nuclear stress test performed in 2021 negative for ischemia A troponin level was performed on admission 09/21/2022 that was normal at 9 PG per mL There were subsequent trended overnight last night with measurements of 8.7, 76.4, and 49.1 Assessment and Plan: Chronic persistent atrial fibrillation Nonsustained wide-complex tachycardia, rhythm strips suspicious for nonsustained ventricular tachycardia although atrial fibrillation with aberrant conduction also possibility Preserved LVEF -Patient with new mild anterolateral repolarization changes on EKG and mild troponin elevation. -Continue medical therapy with Eliquis, atenolol, digoxin from a cardiac perspective for now. -Start statin therapy -May warrant further ischemic work-up after he recovers from diverticulitis DVT prophylaxis: Continue Eliquis I spent a total of 20 minutes on the date of service in preparation, delivery, and documentation of the care provided to this patient, excluding any time spent in the performance of separately billed services. Elías Mahmood, DO History of Present Illness Reason for Consultation: CP; Wide complex tachycardia Requesting Physician: Dr. Ag Attending Physician: Dr. Mahmood History of Present Illness Patient is a 72 year old male known to [facility] - Dr. Mahmood/Stefan. History includes: 1. WCT on ZIO patch could be AF with aberrancy vs NSVT 2. Persistent AF diagnosed in July 2021, ongoing rate control recommended given severe LA enlargement. Intolerance to metoprolol. Now on atenolol and digoxin. chronic Eliquis 3. HLD 4. MR-moderate by echo, mild to moderate per [facility] June 2022. 5. TR-moderate 6. Nonischemic nuclear stress testing in August 2021 Patient admitted to [facility] earlier this week after several days of progressive diarrhea, abdominal pain. Diagnosed with diverticulitis. GI consulted. Started on broad spectrum antibiotics. Planning for outpatient EGD and colonoscopy in about 6 weeks. Continues to have frequent bouts of diarrhea. Last night, patient had 23 beat run of possible wide complex tachycardia. Patient admitted to having left sided chest tightness associated with the episode. He was treated with one SL nitro and symptoms resolved quickly. EKG demonstrated atrial fibrillation with more prominent anterolateral ST/T wave abnormality and ST depression. Initial troponin last night was within normal limits. Repeat troponin this morning was mildly elevated at 76. At time of consult, patient reports feeling well. No recurrent chest pain or palpitations. No SOB. No diaphoresis. He continues to have generalized abdominal discomfort with ongoing diarrhea. Echocardiogram pending at time of consult. Allergies Allergy/AdvReac Type Severity Reaction Status Date / Time apple Allergy Severe THROAT Verified 05/27/22 13:39 SWELLS lizarraga Allergy Severe THROAT Verified 05/27/22 13:39 SWELLS latex AdvReac Mild LOCAL SKIN Verified 05/27/22 13:39 IRRITATION amoxicillin [From Augmentin] AdvReac severe Verified 05/27/22 13:39 diarrhea clavulanic acid AdvReac severe Verified 05/27/22 13:39 [From Augmentin] diarrhea Home Medications Medication Instructions Recorded Confirmed Type turmeric 400 mg capsule 400 mg PO BID 01/14/19 09/21/22 History apixaban 5 mg tablet (Eliquis) 5 mg PO BID 05/27/22 09/21/22 History ascorbic acid (vitamin C) 500 mg 500 mg PO DAILY 05/27/22 09/21/22 History tablet (Vitamin C With Ling Hips) atenolol 25 mg tablet 25 mg PO BID 05/27/22 09/21/22 History digoxin 125 mcg (0.125 mg) tablet 125 mcg PO QAM 05/27/22 09/21/22 History Patient History Medical History Atrial fibrillation F/U DR. MAHMOOD, [facility] History of anesthesia reaction "BECAME VERY VIOLENT AFTER LAUGHING GAS" History of seizure AN INFANT, HAD SEIZURES WITH HIGH FEVER AND MEASLES Osteoarthritis RT KNEE Prostate cancer HX Surgical History H/O arthroscopic knee surgery History of cholecystectomy History of prostate surgery RADICAL Hx of basal cell carcinoma excision Hx of colonoscopy Hx of left inguinal hernia repair Hx of tonsillectomy Status post right inguinal hernia repair X3 ON THE RIGHT Family History Grandmother Colorectal cancer Father Congestive heart failure Mother Cervical cancer Sister Ovarian cancer Denies family history of Prostate cancer Breast cancer Social History Smoking Status: Never smoker Age Started Using Tobacco: 19; Age Quit Using Tobacco: 32; packs per day: 1.5; Second Hand Exposure: Yes (HX); Do You Dip or Chew Tobacco: Yes (HX-QUIT OVER 20 YEARS AGO; ADVISED); Hx Alcohol Use: Yes Alcohol type: beer and hard liquor Alcohol Intake Frequency Comment: 1-2 drinks per day Hx Substance Use: No Preferred Language: Burmese Communication Ability: Effective Visual Impairment: Limited Hearing Ability: Normal Specialist Field Engineer Required: No Beliefs That Will Affect Care: None marital status: Current Living Situation: Spouse current occupational status: retired Feels Safe at Home: Yes Childhood Exposure to Second-Hand Smoke: No Diet: regular caffeine: Yes during the past year weight has: remained stable Dental Care, Regularly: Yes Physical Activity Frequency: Daily Seatbelt Use: always Sunscreen Use: Yes Assistive Devices: None Review of Systems Review of Systems: All systems reviewed & are unremarkable except as noted in HPI & below Physical Exam Constitutional: WD/WN, vitals as above Respiratory: normal respiratory effort, lungs clear to auscultation Cardiovascular: Rate/Rhythm: + irregularly irregular Heart Sounds: no murmur Vessels: no JVD Extremities: no edema Gastrointestinal (Abdomen): Inspection/Auscultation: abdomen normal to inspection Percussion/Palpation: + guarding Neurologic: PERRL, EOMI, accommodation nl, no face palsy, no dysarthria Results & Data Vital Signs (Past 12 Hours) Vital Signs Temp Pulse Pulse Resp BP BP Pulse Ox 09/24/22 08:17 87 09/24/22 08:13 87 16 122/84 97 09/24/22 07:20 69 09/24/22 03:33 36.8 C 70 18 106/74 96 09/24/22 01:45 69 09/23/22 23:09 36.7 C 84 18 90/65 L 93 09/23/22 23:34 94/56 L 09/23/22 21:59 71 17 114/78 97 O2 Del Method 09/24/22 08:17 09/24/22 08:13 Room Air 09/24/22 07:20 09/24/22 03:33 Room Air 09/24/22 01:45 09/23/22 23:09 Room Air 09/23/22 23:34 09/23/22 21:59 Room Air Laboratory Results Cardiac Enzymes 09/23/22 09/24/22 Range/Units 22:34 06:12 AST 30 (13-39) U/L Troponin I High Sens 8.7 76.4 H* D (0-20) pg/ml CBC 09/24/22 Range/Units 06:12 WBC 5.36 (4.8-10.8) K/ul RBC 4.40 L (4.70-6.10) M/uL Hgb 13.8 L (14.0-18.0) g/dl Hct 39.2 L (42.0-52.0) % Plt Count 116 L (130-400) K/uL Neut # (Auto) 2.20 (1.40-6.50) K/uL Lymph # (Auto) 2.23 (1.2-3.4) K/uL Pine # (Auto) 0.83 H (0.11-0.59) K/uL Eos # (Auto) 0.05 (0-0.50) K/uL Baso # (Auto) 0.03 (0-0.2) K/uL Comprehensive Metabolic Panel 09/23/22 09/24/22 Range/Units 22:34 06:12 Sodium 140 (136-145) mmol/L Potassium 3.8 3.6 (3.5-5.1) mmol/L Chloride 107 (98-107) mmol/L Carbon Dioxide 29 (21-32) mmol/L BUN 10 (6-23) mg/dl Creatinine 0.72 (0.6-1.4) mg/dl Glucose 107 H (70-99(Fasting)) mg/dl Calcium 8.2 L (8.6-10.3) mg/dl AST 30 (13-39) U/L ALT 29 (7-52) U/L Alkaline Phosphatase 83 (34-104) U/L Total Protein 5.6 L (6.0-8.3) gm/dl Albumin 3.3 L (3.4-5.0) gm/dl Intake and Output 09/23/22 09/24/22 09/24/22 22:59 06:59 14:59 Intake Total 270 / 2508.333 1618.333 / 2508.333 Output Total 2 / 503 500 / 503 Balance 268 / 2004.333 1118.333 / 2004.333 Intake: IV 270 / 8503.575 6972.333 / 1738.333 D5w and Nss 1,000 ml @ 125 mls/ 758.333 / 758.333 hr IV .Q8H [facility] Rx#:[id number] Doxycycline Hyclate 100 mg In 110 / 110 Dextrose 5% 100 ml @ 50 mls/hr IV Q12H [facility] Rx#:[id number] Sodium Chloride 0.9% 500 ml @ 500 / 500 500 mls/hr IV .Q1H [facility] Rx#: [id number] cefTRIAXone SODIUM 2,000 mg In 70 / 70 Dextrose 5% 50 ml @ 100 mls/hr IV Q24H [facility] Rx#:[id number] metroNIDAZOLE 500 mg In 100 ml 200 / 300 100 / 300 @ 100 mls/hr IV Q8H [facility] Rx#: [id number] Oral 150 / 770 Output: Urine 500 / 500 # Bowel Movements 2 / 3 Other: Weight 76 kg Diagnostic Findings EKG reviewed dated 09/23/22 at time of chest pain: Atrial fibrillation with controlled rates ST depression noted in anterolateral leads, more prominent than prior EKG on admission Telemetry reviewed:Atrial fibrillation with controlled rates. One episode of WCT around 9:20 PM last night lasting 23 beats Outside records reviewed: Outpatient ZIO report reviewed dated Jan 2022: CONCLUSIONS: Final Interpretation : Indication: persistent atrial fibrillation Duration: 3 days, 3 hours 11 Ventricular Tachycardia runs occurred, the run with the fastest interval lasting 4 beats with a max rate of 203 bpm, the longest lasting 7 beats with an avg rate of 127 bpm. Atrial Fibrillation occurred continuously (100% burden), ranging from 39-179 bpm (avg of 75 bpm). 1 Pause occurred lasting 3 secs (20 bpm). Isolated VEs were occasional (3.2%, 71849), VE Couplets were rare (<1.0%, 428), and VE Triplets were rare (<1.0%, 25). Ventricular Bigeminy and Trigeminy were present. Symptoms correlate with atrial fibrillation and controlled ventricular response and ventricular ectopy. Isolated 3 second pause occurred at 5:31 a.m. without associated symptoms. Nuclear stress test August 2021: Myocardial perfusion imaging is normal. Overall left ventricular systolic function was normal without regional wall motion abnormalities. The left ventricular ejection fraction was 54%. There are no prior studies available for comparison. Medications Administered Current Inpatient Medications Acetaminophen (Acetaminophen 325 Mg Tab) 650 mg PO Q4H PRN PRN Reason: Pain or Fever Stop: 10/21/22 18:36 Al Hydrox/Mg Hydrox/Simethicone (Aluminum/Magnesium Susp 30 Ml Udc) 15 ml PO Q4H PRN PRN Reason: Dyspepsia Stop: 10/21/22 18:36 Apixaban (Apixaban 5 Mg Tablet) 5 mg PO BID [facility] Stop: 10/21/22 20:59 Last Admin: 09/24/22 08:16 Dose: 5 mg Ascorbic Acid (Ascorbic Acid 500 Mg Tab) 500 mg PO DAILY [facility] Stop: 10/22/22 08:59 Last Admin: 09/24/22 08:15 Dose: Not Given Atenolol (Atenolol 25 Mg Tablet) 25 mg PO BID [facility] Stop: 10/21/22 20:59 Last Admin: 09/24/22 08:16 Dose: 25 mg Cholestyramine Resin (Cholestyramine Light 4 Gm Pkt) 2 gm PO BID@1000,2200 [facility] Stop: 10/23/22 09:59 Last Admin: 09/24/22 10:33 Dose: 2 gm Digoxin (Digoxin 0.125 Mg Tab) 0.125 mg PO QAM [facility] Stop: 10/22/22 08:59 Last Admin: 09/24/22 08:17 Dose: 0.125 mg Ceftriaxone Sodium 2,000 mg/ (Dextrose) 70 mls @ 100 mls/hr IV Q24H [facility]; Protocol Stop: 10/01/22 18:59 Last Infusion: 09/23/22 18:59 Dose: Infused Metronidazole (Flagyl) 500 mg in 100 mls @ 100 mls/hr IV Q8H [facility]; Protocol Stop: 10/03/22 12:59 Last Infusion: 09/24/22 06:43 Dose: Infused Doxycycline Hyclate 100 mg/ (Dextrose) 110 mls @ 50 mls/hr IV Q12H [facility] Stop: 10/07/22 22:29 Last Admin: 09/24/22 10:33 Dose: 50 mls/hr Nitroglycerin (Nitroglycerin Sl 0.4 Mg/Tab Tab) 0.4 mg SL Q5M PRN PRN Reason: Chest Pain Stop: 10/23/22 22:08
[2022-09-24] MEDS: D5W AND NSS 1,000 ML IV SCH (08:38)
--- NOTE | 2022-09-24 08:44 | Electrocardiogram Report ---
Test Reason : Blood Pressure : / mmHG Vent. Rate : 073 BPM Atrial Rate : 115 BPM P-R Int : 000 ms QRS Dur : 090 ms QT Int : 386 ms P-R-T Axes : 000 -54 -57 degrees QTc Int : 425 ms Atrial fibrillation with premature ventricular or aberrantly conducted complexes Pulmonary disease pattern Left anterior fascicular block ST depression in Anterolateral leads , consider ischemia Abnormal ECG When compared with ECG of 23-SEP-2022 05:02, ST depression in Anterolateral leads now present Reconfirmed by Chinedu Clark ([id number]) on 09/24/2022 8:46:46 AM Referred By: REFERRED SELF Confirmed By:Chinedu Clark
--- NOTE | 2022-09-24 08:45 | Electrocardiogram Report ---
Test Reason : Blood Pressure : / mmHG Vent. Rate : 076 BPM Atrial Rate : 092 BPM P-R Int : 000 ms QRS Dur : 094 ms QT Int : 344 ms P-R-T Axes : 000 -58 -74 degrees QTc Int : 387 ms Atrial fibrillation with premature ventricular or aberrantly conducted complexes Low voltage QRS Left anterior fascicular block ST depression in Anterolateral leads , consider ischemia Abnormal ECG When compared with ECG of 23-SEP-2022 21:35, ST depression in Anterolateral leads more pronounced Confirmed by Chinedu Clark ([id number]) on 09/24/2022 8:45:00 AM Referred By: REFERRED SELF Confirmed By:Chinedu Clark
[2022-09-24] MEDS ORDERED: POTASSIUM CHLORIDE CRTAB 20 MEQ TABCR PO ONE (10:32)
[2022-09-24] MEDS: DOXYCYCLINE HYCLATE 100 MG in DEXTROSE 5% 100 ML IV SCH ×2 (10:33→21:59)
[2022-09-24] MEDS: CHOLESTYRAMINE LIGHT 4 GM PKT PO SCH ×2 (10:33→21:59)
--- NOTE | 2022-09-24 13:33 | Hospitalist Progress Note ---
Date of Service September 24, 2022 Assessment & Plan (1) Fever: (2) Hyponatremia: (3) Thrombocytopenia: (4) Acute diverticulitis: (5) History of prostate cancer: Plan: Patient is a 72-year-old male with past medical history of A-fib on Eliquis, hyperlipidemia, radical prostatectomy presents to the ED with fever, UTI symptoms and dizziness. Acute diverticulitis Hyponatremia Chronic diarrhea Tmax of 101 F at home Labs reviewed; lymphopenia and thrombocytopenia present, improving. Sodium of 129 on presentation; CT head, CTA head and neck negative for acute finding. Urinalysis not suggestive of infection. Lyme IgG/IgM negative Blood culture no growth till date Anaplasma smear, Babesia smear negative; serology pending Stool PCR and C. difficile negative CT abdomen pelvis obtained due to persistent abdominal pain; found to have acute diverticulitis at junction of descending colon/sigmoid colon. Continue ceftriaxone and Flagyl. Also on doxycycline for presumed tick bite infection. Awaiting confirmatory test. Patient reports chronic diarrhea which has increased in frequency recently. He reports diarrhea started after cholecystectomy. Started on cholestyramine. Outpatient colonoscopy as per GI in 6 to 8 weeks. Continue to monitor CBC daily for lymphopenia and thrombocytopenia. Advance diet as tolerated. Chest pain NSVT Patient reported chest discomfort and had an episode of NSVT on the night of September 23 EKG personally reviewed; A-fib with ST depression in anterolateral leads. High since troponin increased to 76 and down trended Negative stress test in August Continue on Eliquis, atenolol and digoxin. Will obtain lipid panel in a.m. Other conditions; Atrial fibrillation; EKG personally reviewed; A-fib with controlled heart rate. Continue on Eliquis, digoxin and atenolol. Monitor on telemetry History of prostate cancer status post prostatectomy Hyperlipidemianot on statin. Time spent evaluating patient, direct bedside care, chart review, placing orders, interpretation of diagnostic studies, discussion with consultants, patient, and family members, as well as other required patient management activities is 60 minutes. Please note the above document was generated using voice recognition software. It may contain grammatical, syntax or spelling errors. Any formal questions or concerns about the content, text or information contained within the body of this dictation should be directly addressed to the provider for clarification Admission and Anticipated Discharge Date Admission Date: September 21, 2022 Subjective Patient is comfortably sitting up tolerating clear liquid diet. Overnight, patient had episode of chest discomfort and episode of NSVT. Reports that the chest pain has improved. Review of Systems Review of Systems: All systems reviewed & are unremarkable except as noted in Subjective Physical Exam Physical Exam: Constitutional: Awake, alert orient x3; not in distress. Respiratory: Bilateral vesicular l breath sound Cardiovascular: Irregular, no murmur, no edema Vessels: no JVD or carotid bruit Chest: normal inspection of chest Abdomen: Soft. Nontender.. Musculoskeletal: no cyanosis or clubbing, extremities motor strength 5/5 Skin: no rashes, warm and dry normal turgor Neurologic: Urine output 2-12 intact Strength 5/5 throughout Sensation intact throughout Finger-nose test intact Psychiatric: A+Ox3, euthymic affect Results & Data Results & Data Vital Signs (Past 12 Hours) Vital Signs Temp Pulse Pulse Resp BP BP Pulse Ox 09/24/22 11:40 36.9 C 79 18 106/65 97 09/24/22 08:17 87 09/24/22 08:13 87 16 122/84 97 09/24/22 07:20 69 09/24/22 03:33 36.8 C 70 18 106/74 96 09/24/22 01:45 69 O2 Del Method 09/24/22 11:40 Room Air 09/24/22 08:17 09/24/22 08:13 Room Air 09/24/22 07:20 09/24/22 03:33 Room Air 09/24/22 01:45 Laboratory Results Laboratory Results WBC 5.36 K/ul (4.8-10.8) 09/24/22 06:12 RBC 4.40 M/uL (4.70-6.10) L 09/24/22 06:12 Hgb 13.8 g/dl (14.0-18.0) L 09/24/22 06:12 Hct 39.2 % (42.0-52.0) L 09/24/22 06:12 MCV 89.1 fL (80.0-100.0) 09/24/22 06:12 MCH 31.4 pg (25.0-34.0) 09/24/22 06:12 MCHC 35.2 g/dL (32.0-36.0) 09/24/22 06:12 RDW Std Deviation 41.6 fL (36.4-46.3) 09/24/22 06:12 RDW Coeff of Bessy 12.7 % (11.5-14.5) 09/24/22 06:12 Plt Count 116 K/uL (130-400) L 09/24/22 06:12 MPV 11.7 fL (9.4-12.4) 09/24/22 06:12 Immature Gran % (Auto) 0.4 % 09/24/22 06:12 Neut % (Auto) 41.0 % 09/24/22 06:12 Lymph % (Auto) 41.6 % 09/24/22 06:12 Ramsey % (Auto) 15.5 % 09/24/22 06:12 Eos % (Auto) 0.9 % 09/24/22 06:12 Baso % (Auto) 0.6 % 09/24/22 06:12 Neut # (Auto) 2.20 K/uL (1.40-6.50) 09/24/22 06:12 Lymph # (Auto) 2.23 K/uL (1.2-3.4) 09/24/22 06:12 Ramsey # (Auto) 0.83 K/uL (0.11-0.59) H 09/24/22 06:12 Eos # (Auto) 0.05 K/uL (0-0.50) 09/24/22 06:12 Baso # (Auto) 0.03 K/uL (0-0.2) 09/24/22 06:12 Immature Gran # (Auto) 0.02 K/uL (0.01-0.20) 09/24/22 06:12 Polychromasia 1+ 09/22/22 06:15 Tear Drop Cells 1+ 09/21/22 12:50 Echinocytes 1+ 09/24/22 06:12 Acanthocytes (Spur) 1+ 09/22/22 06:15 Peripher Smr Path Cons 09/21/22 18:45 Sodium 140 mmol/L (136-145) 09/24/22 06:12 Potassium 3.6 mmol/L (3.5-5.1) 09/24/22 06:12 Chloride 107 mmol/L (98-107) 09/24/22 06:12 Carbon Dioxide 29 mmol/L (21-32) 09/24/22 06:12 Anion Gap 4 (3-11) 09/24/22 06:12 BUN 10 mg/dl (6-23) 09/24/22 06:12 Creatinine 0.72 mg/dl (0.6-1.4) 09/24/22 06:12 Est Cr Clr Drug Dosing 92.4 ml/min 09/24/22 06:12 Est GFR ( Amer) 109.5 ml/min 09/24/22 06:12 Est GFR (Non-Af Amer) 94.5 ml/min 09/24/22 06:12 BUN/Creatinine Ratio 13.9 (10-20) 09/24/22 06:12 Glucose 107 mg/dl (70-99(Fasting)) H 09/24/22 06:12 POC Glucose 106 mg/dl (70-99) H 09/21/22 16:13 Calcium 8.2 mg/dl (8.6-10.3) L 09/24/22 06:12 Magnesium 1.8 mg/dl (1.7-2.4) 09/23/22 22:34 Total Bilirubin 0.4 mg/dl (0.2-1.0) 09/24/22 06:12 AST 30 U/L (13-39) 09/24/22 06:12 ALT 29 U/L (7-52) 09/24/22 06:12 Alkaline Phosphatase 83 U/L (34-104) 09/24/22 06:12 Troponin I High Sens 49.1 pg/ml (0-20) H D 09/24/22 10:51 Total Protein 5.6 gm/dl (6.0-8.3) L 09/24/22 06:12 Albumin 3.3 gm/dl (3.4-5.0) L 09/24/22 06:12 Globulin 2.3 gm/dl (2.5-4.0) L 09/24/22 06:12 Albumin/Globulin Ratio 1.4 (0.9-2) 09/24/22 06:12 Urine Color Yellow 09/21/22 12:50 Urine Appearance Clear (Clear) 09/21/22 12:50 Urine pH 6.0 (4.5-7.5) 09/21/22 12:50 Ur Specific [place] 1.005 (1.000-1.030) 09/21/22 12:50 Urine Protein Negative (Negative) 09/21/22 12:50 Urine Glucose (UA) Negative (Negative) 09/21/22 12:50 Urine Ketones Negative (Negative) 09/21/22 12:50 Urine Blood 2+ (Negative) H 09/21/22 12:50 Urine Nitrite Negative (Negative) 09/21/22 12:50 Urine Bilirubin Negative (Negative) 09/21/22 12:50 Urine Urobilinogen Negative (Negative) 09/21/22 12:50 Ur Leukocyte Esterase Negative (Negative) 09/21/22 12:50 Urine WBC (Auto) 1-5 /hpf (0-5) 09/21/22 12:50 Urine RBC (Auto) 5-10 /hpf (0-4) H 09/21/22 12:50 U Hyaline Cast (Auto) 0 /lpf (0-5) 09/21/22 12:50 U Epithel Cells (Auto) 0-5 /lpf (0-5) 09/21/22 12:50 Urine Bacteria (Auto) Negative (Negative) 09/21/22 12:50 Urine Osmolality 135 mOsm/kg (500-800) L 09/21/22 12:50 Urine Sodium < 10 mmol/L 09/21/22 12:50 Urine Potassium 10.9 mmol/L 09/21/22 12:50 Urine Chloride 27 mmol/L 09/21/22 12:50 Stl C. cayetanensis PCR Not Detected (NotDetected) 09/22/22 14:05 Stool Rotavirus A PCR Not Detected (NotDetected) 09/22/22 14:05 Stl Adenov F 40/41 PCR Not Detected (NotDetected) 09/22/22 14:05 Stool Astrovirus (PCR) Not Detected (NotDetected) 09/22/22 14:05 Stool Campylobacter PCR Not Detected (NotDetected) 09/22/22 14:05 Stl C. diff Tox B Gene Negative Cdiff Gene (Neg) 09/22/22 14:05 Stool Cryptosporidium PCR Not Detected (NotDetected) 09/22/22 14:05 Stl E.coli Shiga Tox PCR Not Detected (NotDetected) 09/22/22 14:05 Stl Enterotoxigenic E PCR Not Detected (NotDetected) 09/22/22 14:05 Stool EPEC (PCR) Not Detected (NotDetected) 09/22/22 14:05 Stool EAEC (PCR) Not Detected (NotDetected) 09/22/22 14:05 Stl E. histolytica PCR Not Detected (NotDetected) 09/22/22 14:05 Stool Giardia Lamblia PCR Not Detected (NotDetected) 09/22/22 14:05 Stool Salmonella PCR Not Detected (NotDetected) 09/22/22 14:05 Stool Sapovirus (PCR) Not Detected (NotDetected) 09/22/22 14:05 Stl P. shigelloides PCR Not Detected (NotDetected) 09/22/22 14:05 Stl Shigella/EIEC PCR Not Detected (NotDetected) 09/22/22 14:05 St Y.enterocolitica PCR Not Detected (NotDetected) 09/22/22 14:05 Stool Vibrio (PCR) Not Detected (NotDetected) 09/22/22 14:05 Stl Vibrio cholerae PCR Not Detected (NotDetected) 09/22/22 14:05 Stl Norovirus GI/GII PCR Not Detected (NotDetected) 09/22/22 14:05 Digoxin 0.6 ng/ml (0.8-2.0) L 09/21/22 12:50 IgA 147.6 mg/dl (70-400) 09/24/22 06:12 Anaplasma Smear See Comment 09/21/22 18:45 Babesia Smear See Comment 09/21/22 18:45 Lyme Disease IgG Ab Negative (Negative) 09/21/22 12:50 Lyme Disease IgM Ab Negative (Negative) 09/21/22 12:50 SARS-CoV-2, RNA, NAAT NEGATIVE (NEGATIVE) 09/21/22 16:[address] 09/21/22 12:42 CT OF THE HEAD WITHOUT CONTRAST CLINICAL HISTORY: +rombergvicki COMPARISON STUDY: Head CT August 11, 2019. TECHNIQUE: Helical axial images of the head were obtained without IV contrast. Automated exposure control was utilized for the study. A dose lowering technique was utilized adhering to the principles of ALARA. FINDINGS: No acute intracranial hemorrhage, midline shift or mass effect is present. The ventricular system is unremarkable. The basal cisterns are patent. No extra-axial collections are present. There are no findings to suggest acute dural sinus thrombosis or acute territorial infarct. No significant calvarial abnormalities are present. Visualized portions of the sinuses and mastoid air cells are clear. IMPRESSION: No acute intracranial findings. ACT 112: Negative or not required by law. Electronically signed by: Valente Blanco M.D. 09/21/2022 3:17 PM Head CTA 09/21/22 12:42 CTA ANGIOGRAPHY OF THE HEAD CLINICAL HISTORY: +romberg, disequilibrium COMPARISON STUDY: Head CT August 11, 2019. TECHNIQUE: Helical axial images of the head were obtained following uneventful intravenous administration of 118 cc of Optiray. Sagittal and coronal reconstructions were viewed as well as maximal intensity projections on an independent 3-D workstation. Automated exposure control was utilized for the study. A dose lowering technique was utilized adhering to the principles of ALARA. FINDINGS: No acute intracranial hemorrhage is identified on the head CT which will be reported separately. Ventricular system is normal. Basal cisterns are patent. There are no extra-axial collections. The bilateral M1, M2, A1 and A2 segments are patent. Posterior circulation is intact. There is no central vessel occlusion. There is no intracranial aneurysm. IMPRESSION: Unremarkable CTA of the head. ACT 112: Negative or not required by law. Electronically signed by: Valente Blanco M.D. 09/21/2022 3:35 PM Neck CTA 09/21/22 12:42 CT ANGIOGRAPHY OF THE NECK WITH CONTRAST CLINICAL HISTORY: +pino, vicki COMPARISON STUDY: No previous studies for comparison. Technique: CT angiography of the carotid and vertebral arteries was obtained using Optiray and 3D reconstruction on an independent workstation. NASCET criteria was utilized. Automated exposure control was utilized for the study. A dose lowering technique was utilized adhering to the principles of ALARA. CT DOSE: 976.42 mGy.cm Findings: Visualized portions of the lung apices are unremarkable. There is no cervical lymphadenopathy. There is no cervical spine fracture. The bilateral common carotid, cervical internal carotid and vertebral arteries are patent. There is no stenosis or dissection within these vessels. There is no aneurysm within the neck. There is mild plaque within the proximal left internal carotid artery without stenosis. CTA of the head will be reported separately. IMPRESSION: No stenosis or dissection within the bilateral common carotid, cervical internal carotid or vertebral arteries. ACT 112: Negative or not required by law. Electronically signed by: Valente Blanco M.D. 09/21/2022 3:27 PM Abdomen/Pelvis CT 09/23/22 09:[address] WITH IV CONTRAST CT DOSE: 964.90 mGy.cm HISTORY: Persistent diarrhea, LLQ pain TECHNIQUE: Multiaxial CT images of the abdomen and pelvis were performed following the use of intravenous contrast. A dose lowering technique was utilized adhering to the principles of ALARA. COMPARISON STUDY: Abdomen and pelvis CT 05/15/2011. FINDINGS: The lung bases are clear. No pneumoperitoneum. No pneumatosis. Sclerotic foci within the posterior iliac bones are nonspecific but favor bone islands. Dominant sclerotic focus on the right measures 1.5 cm. No acute fractures identified. The heart is borderline enlarged. There is mild circumferential thickening of the distal esophagus. Cholecystectomy. There is a 2 cm cyst within the left hepatic lobe. This has slightly increased in size. The spleen is mildly enlarged measuring 14 cm in length. The adrenal glands and pancreas are unremarkable. There are few subcentimeter hypodense lesions within the kidneys. These are technically too small to characterize but statistically represent cysts. No renal or ureteral stones. No hydronephrosis. The bladder is decompressed resulting in suboptimal evaluation. Prior prostatectomy. Prior pelvic lymph node dissection. No pelvic lymphadenopathy. There is trace pelvic free fluid. The main portal vein is patent. Normal caliber abdominal aorta. Subcentimeter retroperitoneal lymph nodes do not meet CT criteria for pathologic involvement. Colonic diverticulosis. Fluid-filled large and small bowel. This can be seen in the setting of a diarrheal illness/gastroenteritis. Questionable thickening at the distal transverse colon is likely due to underdistention. No dilated loops of bowel to suggest an obstruction. There is a single inflamed diverticulum within the junction of the descending colon/sigmoid colon best seen on image 209 with mild pericolonic fat stranding. This is consistent with a mild acute diverticulitis. No perforation or abscess at this time. IMPRESSION: 1. Acute diverticulitis at the junction of the descending colon/sigmoid colon. No perforation or abscess at this time. 2. Fluid-filled large bowel which can be seen in the setting of a gastroenteritis. 3. No evidence for a bowel obstruction. 4. Mild circumferential thickening of the distal esophagus. This may represent a mild esophagitis. 5. Mild splenomegaly. 6. Additional findings as described above.. ACT 112: Negative or not required by law. Electronically signed by: Leobardo Mccarthy M.D. 09/23/2022 12:31 PM
[2022-09-24] MEDS ORDERED: ATORVASTATIN 10 MG TAB PO ONE (15:15)
--- NOTE | 2022-09-24 16:29 | Electrocardiogram Report ---
Test Reason : Blood Pressure : / mmHG Vent. Rate : 067 BPM Atrial Rate : 083 BPM P-R Int : 000 ms QRS Dur : 088 ms QT Int : 380 ms P-R-T Axes : 000 -35 -79 degrees QTc Int : 401 ms Atrial fibrillation Left axis deviation Low voltage QRS Nonspecific T wave abnormality Anterolateral leads Abnormal ECG When compared with ECG of 23-SEP-2022 21:51, ST depression in Anterolateral leads no longer present Confirmed by Chinedu Clark ([id number]) on 09/24/2022 4:28:45 PM Referred By: REFERRED SELF Confirmed By:Chinedu Clark
[2022-09-24] MEDS: cefTRIAXone SODIUM 2,000 MG in DEXTROSE 5% 50 ML IV SCH (18:12)
[2022-09-25] MEDS: metroNIDAZOLE 500 MG/100 ML BAG IV SCH (05:01)
[2022-09-25 07:18] LABS: Hematocrit (blood only) 37.8 % (42.0-52.0); Hemoglobin 13.4 g/dl (14.0-18.0); Mean Corpuscular Hemoglobin 31.5 pg (25.0-34.0); Mean Corpuscular Hgb Conc 35.4 g/dL (32.0-36.0); Mean Corpuscular Volume 88.7 fL (80.0-100.0); Mean Platelet Volume 11.4 fL (9.4-12.4); Platelet Count 142 K/uL (130-400); RDW Coefficient of Variation 12.7 % (11.5-14.5); RDW Standard Deviation 41.2 fL (36.4-46.3); Red Blood Count 4.26 M/uL (4.70-6.10); White Blood Count 6.97 K/ul (4.8-10.8)
[2022-09-25 07:29] LABS: ALC (manual) 2.09 K/uL (1.2-3.4); ANC (manual) 4.04 K/uL (1.4-6.5); Basophils # (manual) 0.07 K/uL (0-0.2); Basophils % (manual) 1 %; Echinocytes 1+; Eosinophils # (manual) 0.14 K/uL (0-0.50); Eosinophils % (manual) 2 %; Lymphocytes # (manual) 1.18 K/uL (1.2-3.4); Lymphocytes % (manual) 17 %; Monocytes # (manual) 0.63 K/uL (0.11-0.59); Monocytes % (manual) 9 %; Neutrophils # (manual) 4.04 K/uL (1.40-6.50); Neutrophils % (manual) 58 %; Reactive Lymphocytes # (manual) 0.91 K/uL; Reactive Lymphocytes % (manual) 13 %
[2022-09-25 07:36] LABS: Albumin Globulin Ratio 1.5 (0.9-2); Albumin Level 3.2 gm/dl (3.4-5.0); BUN Creatinine Ratio 9.5 (10-20); Bilirubin,Total 0.5 mg/dl (0.2-1.0); Calcium 8.4 mg/dl (8.6-10.3); Chol HDL Ratio 4.1 (0-5); Creatinine Clr Calc Pharmacy 89.9 ml/min; Est GFR (African American) 108.3 ml/min; Est GFR (Non-African American) 93.5 ml/min; Globulin 2.2 gm/dl (2.5-4.0); Potassium 4.1 mmol/L (3.5-5.1); Total Protein 5.4 gm/dl (6.0-8.3)
[2022-09-25] MEDS: ATENOLOL 25 MG TABLET PO SCH (08:03)
[2022-09-25] MEDS: APIXABAN 5 MG TABLET PO SCH (08:03)
[2022-09-25] MEDS: DIGOXIN 0.125 MG TAB PO SCH (08:04)
[2022-09-25] MEDS: ASCORBIC ACID 500 MG TAB PO SCH (08:04)
[2022-09-25] MEDS ORDERED: ATORVASTATIN 10 MG TAB PO SCH (09:00)
[2022-09-25] MEDS: CHOLESTYRAMINE LIGHT 4 GM PKT PO SCH (10:41)
[2022-09-25] MEDS: DOXYCYCLINE HYCLATE 100 MG in DEXTROSE 5% 100 ML IV SCH (10:41)
--- NOTE | 2022-09-25 10:48 | Cardiology Progress Note ---
Date of Service September 25, 2022 Assessment & Plan (1) Chest pain: (2) Wide-complex tachycardia: (3) Abnormal EKG: (4) Acute diverticulitis: (5) Atrial fibrillation with controlled ventricular rate: Plan Patient admitted for diverticulitis. Improving. During admission he had an episode of chest pain correlating with episode of wide complex tachycardia suggestive of non sustained VT vs afib with aberrancy. Symptoms resolved with one SL nitro. EKG at the time demonstrated atrial fib, controlled rates with ST depression in anterolateral leads, more prominent compared to prior EKG Repeat EKG after chest pain resolved, with ongoing T wave inversion in anterolateral leads. HS troponin increased to 76, and then trended to 49. Echo revealed preserved LVEF without wall motion abnormalities. His chest pain has resolved without recurrence. He had a negative nculear stress test in August 2021. Recommend ongoing treatment for diverticulitis with antibiotics. Given recent events of chest pain, possible non sustained VT, abnormal EKG, would consider future work up/evaluation of chest pain after diverticulitis resolves. Consider repeat nuclear stress test vs cardiac catheterization? He is scheduled for colonoscopy/EGD in about 8 weeks in f/u of diverticulitis. If he remains chest pain free, would recommend proceeding with scopes to r/o any bleeding issues prior to potential stent placement. He has known persistent afib and HR's are adequately controlled. Continue Eliquis, atenolol, digoxin. Statin added. Patient agreeable. Case discussed with Dr. Duque I spent a total of 30 minutes on the date of service in preparation, delivery, and documentation of the care provided to this patient, excluding any time spent in the performance of separately billed services. Gisele Patino PA-C Department of Cardiology, [facility] This chart was completed in part utilizing Speech Voice Recognition Software. Grammatical errors, random word insertions, pronoun errors, and incomplete sentences are an occasional consequence of this system due to software limitations, ambient noise, and hardware issues. Any formal questions or concerns about the content, text, or information contained within the body of this dictation should be directly addressed to the provider for clarification. Admission and Anticipated Discharge Date Admission Date: September 21, 2022 Supervising Physician Co-Signing Physician Notes Supervising Physician Attestation: I have personally performed a history and physical examination on the patient. I agree with the physician vector control assistant's findings and plan as documented with the following additions. Subjective: Abdominal pain resolved. No chest tightness. Telemetry reveals rate controlled AF, no additional NSVT. Exam: CV: irregular rhythm, no murmur, no edema Pulm: CTAB Assessment and Plan: -As noted above. -Complete course of therapy for diverticulitis. Outpt cardiology follow up. I spent a total of 20 minutes on the date of service in preparation, delivery, and documentation of the care provided to this patient, excluding any time spent in the performance of separately billed services. Elías Duque, DO Subjective Patient resting in chair comfortably. Denies recurrent chest pain overnight or t his morning. Ambulating in room. Diarrhea and abdominal pain improving. Tolerating breakfast. hopeful to go home today. Review of Systems Review of Systems: All systems reviewed & are unremarkable except as noted in HPI & below Physical Exam Constitutional: WD/WN, vitals as above Respiratory: normal respiratory effort, lungs clear to auscultation Cardiovascular: Rate/Rhythm: + irregularly irregular Heart Sounds: no murmur Vessels: no JVD Extremities: no edema Gastrointestinal (Abdomen): normal bowel sounds, soft, nontender, no hepatosplenomegaly Neurologic: PERRL, EOMI, accommodation nl, no face palsy, no dysarthria Results & Data Vital Signs (Past 12 Hours) Vital Signs Temp Pulse Pulse Resp BP Pulse Ox O2 Del Method 09/25/22 08:04 72 09/25/22 07:53 36.4 C L 74 17 105/77 96 Room Air 09/25/22 07:08 60 09/25/22 02:38 36.5 C 74 18 97/70 L 97 Room Air 09/24/22 23:00 70 09/24/22 22:51 36.5 C 71 18 104/78 96 Room Air Laboratory Results Cardiac Enzymes 09/24/22 09/25/22 Range/Units 10:51 06:11 AST 35 (13-39) U/L Troponin I High Sens 49.1 H D (0-20) pg/ml Lipids 09/25/22 Range/Units 06:11 Triglycerides 74 (0-150) mg/dl Cholesterol 124 (0-200) mg/dl HDL Cholesterol 30 mg/dl Cholesterol/HDL Ratio 4.1 (0-5) CBC 09/25/22 Range/Units 06:11 WBC 6.97 (4.8-10.8) K/ul RBC 4.26 L (4.70-6.10) M/uL Hgb 13.4 L (14.0-18.0) g/dl Hct 37.8 L (42.0-52.0) % Plt Count 142 (130-400) K/uL Comprehensive Metabolic Panel 09/25/22 Range/Units 06:11 Sodium 141 (136-145) mmol/L Potassium 4.1 (3.5-5.1) mmol/L Chloride 108 H (98-107) mmol/L Carbon Dioxide 30 (21-32) mmol/L BUN 7 (6-23) mg/dl Creatinine 0.74 (0.6-1.4) mg/dl Glucose 94 (70-99(Fasting)) mg/dl Calcium 8.4 L (8.6-10.3) mg/dl AST 35 (13-39) U/L ALT 32 (7-52) U/L Alkaline Phosphatase 77 (34-104) U/L Total Protein 5.4 L (6.0-8.3) gm/dl Albumin 3.2 L (3.4-5.0) gm/dl Intake and Output 09/24/22 09/25/22 09/25/22 22:59 06:59 14:59 Intake Total 770 / 2692.917 710 / 2692.917 Output Total 2 / 2 Balance 770 / 2690.917 708 / 2690.917 Intake: IV 170 / 1112.917 210 / 1112.917 Doxycycline Hyclate 100 mg In 110 / 220 Dextrose 5% 100 ml @ 50 mls/hr IV Q12H [facility] Rx#:[id number] cefTRIAXone SODIUM 2,000 mg In 70 / 70 Dextrose 5% 50 ml @ 100 mls/hr IV Q24H [facility] Rx#:[id number] metroNIDAZOLE 500 mg In 100 ml 100 / 300 100 / 300 @ 100 mls/hr IV Q8H [facility] Rx#: [id number] Oral 600 / 1580 500 / 1580 Output: # Bowel Movements 2 / 2 Other: # Unmeasured Voids 3 2 Weight 76 kg Diagnostic Findings Telemetry reviewed: Afib with controlled rates. Rates 40-50's overnight and mostly 60-70's during the day. Repeat EKG yesterday: Afib with controlled rates T wave abnormality in anterolateral leads. Echo report reviewed dated 09/24/22: Mild concentric LVH LV systolic function is normal EF 55-60% LV wall motion is normal Moderate MR Mild TR Doppler findings do not suggest pulm hypertension Aortic root is mildly dilated Medications Administered Current Inpatient Medications Acetaminophen (Acetaminophen 325 Mg Tab) 650 mg PO Q4H PRN PRN Reason: Pain or Fever Stop: 10/21/22 18:36 Al Hydrox/Mg Hydrox/Simethicone (Aluminum/Magnesium Susp 30 Ml Udc) 15 ml PO Q4H PRN PRN Reason: Dyspepsia Stop: 10/21/22 18:36 Apixaban (Apixaban 5 Mg Tablet) 5 mg PO BID [facility] Stop: 10/21/22 20:59 Last Admin: 09/25/22 08:03 Dose: 5 mg Ascorbic Acid (Ascorbic Acid 500 Mg Tab) 500 mg PO DAILY [facility] Stop: 10/22/22 08:59 Last Admin: 09/25/22 08:04 Dose: Not Given Atenolol (Atenolol 25 Mg Tablet) 25 mg PO BID [facility] Stop: 10/21/22 20:59 Last Admin: 09/25/22 08:03 Dose: 25 mg Atorvastatin Calcium (Atorvastatin 10 Mg Tab) 10 mg PO QAM [facility] Stop: 10/25/22 08:59 Last Admin: 09/25/22 08:04 Dose: Not Given Cholestyramine Resin (Cholestyramine Light 4 Gm Pkt) 2 gm PO BID@1000,2200 [facility] Stop: 10/23/22 09:59 Last Admin: 09/25/22 10:41 Dose: 2 gm Digoxin (Digoxin 0.125 Mg Tab) 0.125 mg PO QAM [facility] Stop: 10/22/22 08:59 Last Admin: 09/25/22 08:04 Dose: 0.125 mg Ceftriaxone Sodium 2,000 mg/ (Dextrose) 70 mls @ 100 mls/hr IV Q24H [facility]; Protocol Stop: 10/01/22 18:59 Last Infusion: 09/24/22 19:00 Dose: Infused Metronidazole (Flagyl) 500 mg in 100 mls @ 100 mls/hr IV Q8H [facility]; Protocol Stop: 10/03/22 12:59 Last Infusion: 09/25/22 06:04 Dose: Infused Doxycycline Hyclate 100 mg/ (Dextrose) 110 mls @ 50 mls/hr IV Q12H [facility] Stop: 10/07/22 22:29 Last Admin: 09/25/22 10:41 Dose: 50 mls/hr Nitroglycerin (Nitroglycerin Sl 0.4 Mg/Tab Tab) 0.4 mg SL Q5M PRN PRN Reason: Chest Pain Stop: 10/23/22 22:08
--- NOTE | 2022-09-25 12:20 | Discharge Summary ---
Date of Service September 25, 2022 Admission HPI Per Admitting Provider History obtained from chart review and interview with the patient. Past medical history history of persistent atrial fibrillation, mitral valve regurgitation, hyperlipidemia, prostate cancer status post prostatectomy Patient presents to the ED with complaints of fever for last 4 days. Associated with chills. Tmax measured at home of 101 F He also reports dizziness when standing up for similar duration. He also reports headache. Denies any focal neurological deficit otherwise. He reports urinary symptoms with increased urgency and pain while micturating for same duration. He reports history of radical prostatectomy and reports wiping his penis with tissue. Reports being out in the [place]; denies any tick bite. No complaint of cough, chest pain. Reports abdominal pain in left lower quadrant which has been going on for several weeks. Reports diarrhea; 4-5 times a day since his cholecystectomy several years back. On presentation to the ED, patient is hemodynamically stable. Afebrile. Lab work was remarkable for thrombocytopenia with platelets of 100,000. He was also found to have hyponatremia with sodium of 129. Lyme IgG and IgM negative. He underwent CT head, CTA head and neck which did not show any acute abnormality. EKG shows atrial fibrillation; no ST or T wave changes. Medical history; as above Surgical history; history of prostatectomy, cholecystectomy Family history; father with heart issues Social history; former smoker; quit 20 years ago. Drinks 1-2 beers per day for several years. Stopped taking since last 4 days. Admission Exam Per Admitting Provider Constitutional: Appears tired. Not oriented x3 Respiratory: Bilateral vesicular l breath sound Cardiovascular: Irregular, no murmur, no edema Vessels: no JVD or carotid bruit Chest: normal inspection of chest Abdomen: normal bowel sounds, soft, nontender, no hepatosplenomegaly Musculoskeletal: no cyanosis or clubbing, extremities motor strength 5/5 Skin: no rashes, warm and dry normal turgor Neurologic: Urine output 2-12 intact Strength 5/5 throughout Sensation intact throughout Finger-nose test negative Psychiatric: A+Ox3, euthymic affect Principal Diagnosis Acute diverticulitis Hyponatremia Chronic diarrhea Chest pain Discharge Exam Constitutional: Awake, alert orient x3; not in distress. Respiratory: Bilateral vesicular l breath sound Cardiovascular: Irregular, no murmur, no edema Vessels: no JVD or carotid bruit Chest: normal inspection of chest Abdomen: Soft. Nontender.. Musculoskeletal: no cyanosis or clubbing, extremities motor strength 5/5 Skin: no rashes, warm and dry normal turgor Neurologic: Urine output 2-12 intact Strength 5/5 throughout Sensation intact throughout Finger-nose test intact Psychiatric: A+Ox3, euthymic affect Discharge Data Allergies Allergy/AdvReac Type Severity Reaction Status Date / Time apple Allergy Severe THROAT Verified 05/27/22 13:39 SWELLS lizarraga Allergy Severe THROAT Verified 05/27/22 13:39 SWELLS latex AdvReac Mild LOCAL SKIN Verified 05/27/22 13:39 IRRITATION amoxicillin [From Augmentin] AdvReac severe Verified 05/27/22 13:39 diarrhea clavulanic acid AdvReac severe Verified 05/27/22 13:39 [From Augmentin] diarrhea Consultations 09/21/22 16:20 ED Decision to Admit Stat 09/23/22 09:45 Consult Gastroenterology Routine 09/24/22 08:00 Consult Cardiology Routine Ordered Studies 09/21/22 12:42 CT angio head w con Stat CT angio neck with con Stat CT head/brain wo con Stat 09/23/22 09:45 CT abd pelvis IV con only Urgent Hospital Course (1) Fever: (2) Hyponatremia: (3) Thrombocytopenia: (4) Acute diverticulitis: (5) History of prostate cancer: Patient is a 72-year-old male with past medical history of A-fib on Eliquis, hyperlipidemia, radical prostatectomy presents to the ED with fever, UTI symptoms and dizziness. Acute diverticulitis Hyponatremia Chronic diarrhea Tmax of 101 F at home lymphopenia and thrombocytopenia on admission present, improving. Sodium of 129 on presentation; CT head, CTA head and neck negative for acute finding. Urinalysis not suggestive of infection. Lyme IgG/IgM negative Blood culture no growth till date Anaplasma smear, Babesia smear negative; serology pending Stool PCR and C. difficile negative CT abdomen pelvis obtained due to persistent abdominal pain; found to have acute diverticulitis at junction of descending colon/sigmoid colon. During the hospitalization, patient was treated with IV ceftriaxone and Flagyl. He was also on doxycycline for suspicion of tickborne infection. His lymphopenia and thrombocytopenia improved. Sodium also improved from 1 29-141. Diet was advanced from clear liquid and patient was able to tolerate low fiber diet. GI was consulted for comanagement. Recommended outpatient colonoscopy. Chest pain NSVT Patient reported chest discomfort and had an episode of NSVT on the night of September 23 EKG showed A-fib with ST depression in anterolateral leads. High since troponin increased to 76 and down trended Negative stress test in August Cardiology was consulted; patient was started on Lipitor 10 mg once a day. No other episodes of NSVT. Please note the above document was generated using voice recognition software. It may contain grammatical, syntax or spelling errors. Any formal questions or concerns about the content, text or information contained within the body of this dictation should be directly addressed to the provider for clarification Total Time Total Time Spent Total Time Spent (In Minutes): 45 Total Time Includes: Examination of the Patient, Discharge Planning, Medication Reconciliation, Communication With Other Providers and Other Discharge Plan Discharge Items Patient Disposition: Home - Self-Care Reason For Visit: FEVER Discharge Diagnosis: Acute diverticulitis Hyponatremia Chest pain NSVT Activity: Resume your previous activity Non-emergency contact: Primary Care Provider Call non-emergency contact if: you have any medication questions and your symptoms worsen Follow-up/Referrals: Xiomara Valdez MD [Primary Care Provider] - (Date & Time 09/30/2022 10:20 AM Provider Xiomara Valdez MD Department [facility] ) Diet: Low Fiber Addtl Attending Provider Instructions: You were admitted to the hospital with fever. CT abdomen and pelvis showed acute diverticulitis on left side of the colon. You were prescribed antibiotics (ciprofloxacin and Flagyl) to be taken for 5 more days. You were also found to have low sodium level on admission. Your sodium level was 129. It has improved to 141 today. You were found to have low platelet count and WBC count on admission which has also improved. You were prescribed Lipitor 10 mg for prevention of myocardial infarction and stroke. An appointment will be set up with your primary care doctor for sometime next week. You will need follow-up appointment with GI for colonoscopy in 6 to 8 weeks for chronic diarrhea. Pending Studies at Discharge: Yes (Babesia and Anaplasma PCR.) Stand-Alone Forms: [facility], Smoking Cessation Medications and DC Order Prescriptions: New atorvastatin 10 mg Tablet 10 mg PO QAM Qty: 30 0RF ciprofloxacin HCl [Cipro] 500 mg tablet 500 mg PO BID 5 Days Qty: 10 0RF metronidazole 500 mg tablet 500 mg PO TID 5 Days Qty: 15 0RF Continued turmeric 400 mg capsule 400 mg PO BID Patient Comments: USUALLY TAKES 2 DAILY atenolol 25 mg Tablet 25 mg PO BID ascorbic acid (vitamin C) [Vitamin C With Ling Hips] 500 mg Tablet 500 mg PO DAILY digoxin 125 mcg (0.125 mg) Tablet 125 mcg PO QAM Eliquis 5 mg Tablet 5 mg PO BID Discharge Orders: Discharge Order (Routine); Ordered 09/25/22 Ordered By: Alessandro Salvador Admission Data Admit Date/Time: 09/21/22 16:55 Attending Provider: Alessandro Salvador Admit Provider: Alessandro Salvador Primary Care Provider: Xiomara Valdez Other Providers: Alessandro Salvador ; Eder Adamson ; Berto Barragan ; Concha Segundo ; Jenna Guthrie ; Fannie Bermudez ; Marissa Pineda ; Anderson Arreaga ; Giancarlo Nichole ; Esmer De La Rosa ; Selin Escobar ; Shane Pardo ; Carol Raza ; Paola Bowles ; Noelle Ford ; Niurka Cho ; Mart Hamilton ; Guero Moreau ; Noel Doll ; Karmen Mcgill ; Adarsh Short Jr ; Elías Duque
[2022-09-26 01:52] LABS: Babesia microti DNA Not Detected (Not Detected)
[2022-09-26 03:28] LABS: Babesia microti DNA Not Detected (Not Detected)
[2022-09-27 00:48] LABS: Ehrlichia chaff IgG Ab <1:64 (<1:64); Ehrlichia chaff IgM Ab <1:20 (<1:20)
== END 2022-09-25 17:10 | disposition home or self-care (01) | DRG 392 ==
LOC: ED 12:09 → 2E 16:55